=== PATIENT | female | born 1965 | race Caucasian/White ===

== ENCOUNTER → 2017-11-08 | Outpatient (CLI) | payer MEDICAID, SELFPAY | PROVIDERS: Family Provider Internal Medicine Adolescent Medicine; PCP Internal Medicine Adolescent Medicine; Visit Provider Internal Medicine Adolescent Medicine | DX: R09.89 Other specified symptoms and signs involving the circulatory and respiratory systems (principal); I73.9 Peripheral vascular disease, unspecified | CPT/HCPCS: 93923 ==

== ENCOUNTER → 2017-12-28 11:21 | Outpatient (CLI) | payer MEDICAID, SELFPAY ==
[2017-12-28 13:07] LABS: Alanine Aminotransferase 29 U/L (12-78); Albumin Level 3.5 gm/dL (3.4-5.0); Albumin/Globulin Ratio 1.1 (1.1-1.8); Alkaline Phosphatase 78 U/L (46-116); Anion Gap 13.9 mEq/L (5-15); Aspartate Amino Transferase 18 U/L (15-37); Bilirubin,Total 0.3 mg/dL (0.2-1.0); Blood Urea Nitrogen 22 mg/dL (7-18); Carbon Dioxide 28 mmol/L (21.0-32.0); Chloride 110 mmol/L (98-107); Chol/HDL Ratio 4.5 (1-3.5); Cholesterol 170 mg/dL (140-200); Creatinine,Serum 1.08 mg/dL (0.55-1.02); Estimated Glomerular Filt Rate 53 ml/min (>60); GFR (African American) 64 ML/MIN (>60); Globulin 3.2 gm/dl (1.3-3.2); Glucose 126 mg/dL (74-106); HDL Cholesterol 38 mg/dL (29-89); LDL Cholesterol 104 mg/dL (0-130); Magnesium 1.8 mg/dL (1.4-2.2); Potassium 4.9 mmoL/L (3.5-5.1); Sodium 147 mmol/L (136-145); Total Protein,Serum 6.7 gm/dL (6.4-8.2); Triglycerides 140 mg/dL (30-200); VLDL Cholesterol 28 mg/dL (0-40)
== END ==
PROVIDERS: PCP Internal Medicine Adolescent Medicine; Visit Provider Nurse Practitioner Family
DX: E83.42 Hypomagnesemia (principal); E78.1 Pure hyperglyceridemia; I10 Essential (primary) hypertension; N28.9 Disorder of kidney and ureter, unspecified; Z00.00 Encounter for general adult medical examination without abnormal findings
CPT/HCPCS: 36415; 80053; 80061; 83735

== ENCOUNTER → 2018-06-05 16:59 | Outpatient (CLI) | payer MEDICAID, SELFPAY ==
--- NOTE | 2018-06-05 | MM_ITS ---
MM Dig screening mamm BI w/CAD CAD Screening COMPARISON: Digital mammograms with CAD 12/16/2016 and 11/04/2015 INDICATION: There is a history of breast cancer patient's sister diagnosed after menopause. TECHNIQUE: Standard CC and MLO images were obtained. R2 CAD reviewed. FINDINGS: Prominent diffuse heterogenic fibroglandular densities are seen throughout both breast primarily upper outer quadrants. There are stable tiny nodular densities in each breast. A few benign-appearing calcifications in the left breast. There is no suspicious lesion and there are no suspicious microcalcifications. There is mild motion artifact on the MLO view right breast and the patient return for repeat right MLO view. IMPRESSION: Diffusely dense and heterogenic parenchyma pattern, motion artifact right breast. Request repeat MLO view right breast BI-RADS Category: 0 Need Additional Imaging Evaluation RECOMMENDED FOLLOW-UP: IMM - IMMEDIATE FOLLOW-UP RECOMMENDED (A letter has been sent to the patient regarding results of the study.)
== END ==
PROVIDERS: Family Provider Internal Medicine Adolescent Medicine; PCP Internal Medicine Adolescent Medicine; Visit Provider Nurse Practitioner Family
DX: Z12.31 Encounter for screening mammogram for malignant neoplasm of breast (principal)
CPT/HCPCS: 77067

== ENCOUNTER → 2018-06-28 15:13 | Outpatient (CLI) | payer MEDICAID, SELFPAY | PROVIDERS: Family Provider Internal Medicine Adolescent Medicine; PCP Internal Medicine Adolescent Medicine; Visit Provider Internal Medicine Adolescent Medicine | DX: R92.8 Other abnormal and inconclusive findings on diagnostic imaging of breast (principal) ==

== ENCOUNTER → 2019-06-04 16:36 | Outpatient (CLI) | payer MEDICAID, SELFPAY ==
[2019-06-04 17:08] LABS: Basophils % 0.2 % (0.1-2.0); Eosinophils % 0.1 % (0.1-12.0); Hematocrit 40.5 % (37.0-47.0); Hemoglobin 13.6 g/dL (12.2-16.2); Lymphocytes # 2.4 K/mm3 (0.7-4.5); Lymphocytes % 23.7 % (10-50); Mean Corpuscular HGB Conc 33.7 g/dL (31.8-35.4); Mean Corpuscular Hemoglobin 30.5 pg (27.0-31.2); Mean Corpuscular Volume 90.5 fl (81-99); Mean Platelet Volume 7.2 fl (7.4-10.4); Monocytes # 0.8 K/mm3 (0.1-1.0); Monocytes % 7.5 % (1.7-9.3); Neutrophils # 6.8 K/mm3 (1.8-7.8); Neutrophils % 68.4 % (37.0-80.0); Platelet Count 262 K/mm3 (142-424); Red Blood Count 4.48 M/mm3 (4.20-5.40); Red Cell Distribution Width 14.9 % (11.5-17.5)
[2019-06-04 18:58] LABS: Hemoglobin A1C 5.4 % (0.0-7.0)
[2019-06-04 21:31] LABS: Alanine Aminotransferase 29 U/L (12-78); Albumin Level 3.9 gm/dL (3.4-5.0); Albumin/Globulin Ratio 1.1 (1.1-1.8); Alkaline Phosphatase 108 U/L (46-116); Anion Gap 12.9 mEq/L (5-15); Aspartate Amino Transferase 14 U/L (15-37); Bilirubin,Total 0.5 mg/dL (0.2-1.0); Blood Urea Nitrogen 16 mg/dL (7-18); Calcium 9.2 mg/dL (8.5-10.1); Carbon Dioxide 28 mmol/L (21.0-32.0); Chloride 105 mmol/L (98-107); Chol/HDL Ratio 5.1 (1-3.5); Cholesterol 175 mg/dL (140-200); Creatinine,Serum 1.08 mg/dL (0.55-1.02); Estimated Glomerular Filt Rate 53 ml/min (>60); GFR (African American) 64 ML/MIN (>60); Globulin 3.4 gm/dl (1.3-3.2); Glucose 80 mg/dL (74-106); HDL Cholesterol 34 mg/dL (29-89); LDL Cholesterol 100 mg/dL (0-130); Magnesium 1.8 mg/dL (1.4-2.2); Potassium 3.9 mmoL/L (3.5-5.1); Sodium 142 mmol/L (136-145); Total Protein,Serum 7.3 gm/dL (6.4-8.2); Triglycerides 203 mg/dL (30-200); VLDL Cholesterol 41 mg/dL (0-40)
== END ==
PROVIDERS: Visit Provider Internal Medicine Adolescent Medicine
DX: R73.9 Hyperglycemia, unspecified (principal); E83.42 Hypomagnesemia
CPT/HCPCS: 36415; 80053; 80061; 83036; 83735; 85025

== ENCOUNTER → 2019-06-18 15:47 | Outpatient (CLI) | payer MEDICAID, SELFPAY ==
--- NOTE | 2019-06-18 16:09 | XR_ITS ---
XR knee LT 4V HISTORY: Pain ITS.REASON: 4 views weightbearing ORDERING PHYSICIAN: Srinath Enriquez MD PATIENT AGE: 53 years FINDINGS: Severe osteoarthritic changes are present involving the medial compartment and patellofemoral joint with [id number] osteoarthritis of the lateral compartment. There is loss of joint space medially with osteophyte formation. No fracture or dislocation. No lytic or blastic change. The osteoarthritis is somewhat worse compared to 06/17/2014. IMPRESSION: Worsening osteoarthritis
--- NOTE | 2019-06-18 16:09 | XR_ITS ---
XR knee RT 4V HISTORY: ITS.REASON: right knee pain ORDERING PHYSICIAN: Srinath Enriquez MD PATIENT AGE: 53 years COMPARISON: None FINDINGS: Severe osteoarthritic changes are present involving the right knee in all 3 compartments with loss of joint space especially along the medial compartment, osteophyte formation, and osteosclerosis. No fracture or dislocation. No lytic or blastic change. Mild subarticular cystic changes are noted at the medial compartment IMPRESSION: Severe osteoarthritis of the right knee slightly worse when compared to 06/17/2014
== END ==
PROVIDERS: PCP Internal Medicine Adolescent Medicine; Visit Provider Internal Medicine Adolescent Medicine
DX: M25.562 Pain in left knee (principal); M25.561 Pain in right knee
CPT/HCPCS: 73564

== ENCOUNTER → 2019-06-19 15:17 | Outpatient (CLI) | payer MEDICAID, SELFPAY ==
--- NOTE | 2019-06-19 15:22 | XR_ITS ---
XR hip LT 2-3V w/pelvis HISTORY: ITS.REASON: left hip pain ORDERING PHYSICIAN: Hans Candelaria MD PATIENT AGE: 53 years COMPARISON: None FINDINGS: Severe osteoarthritic changes are present involving the left hip with loss of joint space, osteosclerosis, and osteophyte formation. No obvious fracture, dislocation, lytic change or blastic change. IMPRESSION: Severe osteoarthritis of the left hip
--- NOTE | 2019-06-19 15:22 | XR_ITS ---
XR hip RT 2-3V w/pelvis HISTORY: ITS.REASON: right hip pain ORDERING PHYSICIAN: Hans Candelaria MD PATIENT AGE: 53 years COMPARISON: None FINDINGS: There are mild osteoarthritic changes of the right hip. No fracture, dislocation, lytic, or blastic change. IMPRESSION: Mild osteoarthritis of the right hip
== END ==
PROVIDERS: PCP Internal Medicine Adolescent Medicine; Visit Provider Orthopaedic Surgery
DX: M25.551 Pain in right hip (principal); M25.552 Pain in left hip
CPT/HCPCS: 73502

== ENCOUNTER → 2019-07-13 10:09 | Outpatient (CLI) | payer MEDICAID, SELFPAY ==
--- NOTE | 2019-07-13 | CA_ITS ---
APPROVED REPORT Exam: Pharmacologic Technologist: sunshine carroll, Ht: 5 ft 5 in Wt: 290 lbs BSA: 2.32 m2 HR: 82 bpm BP: 122/66 mmHg Rhythm: NSR Indications: CP<SOB<Fatigue Medical History Medications: Lisinopril,,,,, Gabapentin,,,,, Diazepam,,,,, Carvedilol,,,,, OxYCODONE,,,,, Venlafaxine,,,,, Tolterodine,,,,, Amiloride,,,,, Cyclobenzap,,,,, Allergies: ATIVAN Cardiac Risk Factors: HTN, Smoking Stress Test Details Test: LEXISCAN HR Resting HR: 78 bpm Max Heart Rate (APMHR): 164 bpm Max HR Achieved: 93 bpm Target HR (85% APMHR): 139 bpm % of APMHR: 56 Recovery HR: 87 bpm BP Resting BP: 122/66 mmHg Max BP: 136/77.0 mmHg Recovery BP: 120.0/68.0 mmHg ECG Clinical Reason for Termination: Completed protocol Stress Symptoms: NO Exercise duration: 04:00 min Highest Stage Achieved: Stress ECG Conclusion NO CHEST PAIN; NO SHORTNESS OF BREATH - COMPLAINED OF FLUSHING AT PEAK INFUSION. PATIENT HAD AN EPISODE OF BRADYCARDIA FOR 6 SECONDS - HR- 44 - NO ECTOPY NOTED. LESS THAN 1.5MM ST DEPRESSION. IMAGES TO FOLLOW. Test Summary REST 06:23 . . 78 . 122/ 66 . . Stage 1 01:00 . . 89 . . . . Stage 2 01:00 . . 90 . 130/ 66 . . Stage 3 01:00 . . 91 . 118/ 65 . . Stage 4 01:00 . . 88 . 124/ 67 . Stop exercise at 04:00 RECOVERY 01:00 . . 87 . . . . RECOVERY 02:00 . . 85 . 136/ 77 . . RECOVERY 03:00 . . 85 . 113/ 63 . . RECOVERY 04:00 . . 85 . 113/ 63 . . RECOVERY 04:18 . . 85 . 120/ 68 . . Electronically signed by : Costa Ryan, 07/17/2019 09:02:20
--- NOTE | 2019-07-13 10:54 | NM_ITS ---
APPROVED REPORT Exam: Nuclear Stress Test Indication: Chest pain, SOB, Fatigue, Obesity, HTN, Tobacco use Patient Location: Outpatient Stress Tech: Lavinia LooCheikh [place] Tech:Anusha Leonard PARSIH RT(R)(N) Ht: 5 ft 5 in Wt: 290 lbs BSA: 2.32 m2 HR: 82 bpm BP: 122/66 mmHg BMI: 48.2 History: Chest pain, SOB, Fatigue, Obesity, HTN, Tobacco use Procedure: Patient received a 0.4 mg of intravenous Lexiscan, resting heart rate 82 bpm, resting blood pressure 122/66 mmHg, with Lexiscan maximum heart rate achived was 91 bpm which is Less than 85 % of the maximum predicted heart rate and blood pressure was 136/77 mmHg. With Lexiscan, patient denied any complaint of chest pain. Electrocardiogram Resting electric cardiogram showed sinus rhythm, with Lexiscan there is less than 1.[address] segment depression noted from the baseline EKG. The EKG portion of the Lexiscan Myoview is nondiagnostic. Cardiac Stress and Resting SPECT Images: Cardiac Stress and Resting SPECT images were obtained using technetium 99m Myoview 31 mCi stress and 10 mCi at rest. Gated SPECT with analysis of segmental wall motion and calculation of the ejection fraction also done. Cardiac stress and resting SPECT images show mild fixed defect in the anterior wall with normal contractility gated SPECT is likely secondary to soft tissue attenuation, no reversible ischemia seen. Computer derived ejection fraction is over 65% with no regional wall motion abnormality, right ventricle is normal size and contractility. Conclusion: 1. The EKG portion of the Lexiscan Myoview is nondiagnostic. 2. No scintigraphic evidence of reversible ischemia seen, computer derived ejection fraction is over 65% with no regional wall motion abnormality, right ventricle is normal size and contractility. 3. Normal Lexiscan Myoview study. Electronically signed by : Ramón Alcantara, 07/19/2019 16:22:06
--- NOTE | 2019-07-13 13:28 | HMH.ITSHM ---
Current Home Medications as stated by this patient Betty Briseno or human resources representative. []gabapentin ibuprofen venlafazine tolterodine lisinopril amiloride carvedilol cyclobenzap diazepam ranitidine oxycodone
== END ==
PROVIDERS: PCP Internal Medicine Adolescent Medicine; Visit Provider Nurse Practitioner Family
DX: Z01.818 Encounter for other preprocedural examination (principal); R07.89 Other chest pain; R94.31 Abnormal electrocardiogram [ECG] [EKG]; R06.09 Other forms of dyspnea; I10 Essential (primary) hypertension; F41.9 Anxiety disorder, unspecified; F10.21 Alcohol dependence, in remission; F17.200 Nicotine dependence, unspecified, uncomplicated
CPT/HCPCS: 78452; 93017; 93306; A9502; J2785

== ENCOUNTER → 2019-12-05 14:16 | Outpatient (CLI) | payer OTHER, SELFPAY ==
--- NOTE | 2019-12-05 14:42 | ECG_ITS ---
APPROVED REPORT Exam: Resting ECG HR:78 bpm ECG Measurements Heart Rate 78 AXES NJ 154 P 7 QRSd 82 QRS 48 QT 366 T 20 QTc 417 <Conclusion> Normal sinus rhythm Low voltage QRS Abnormal ECG Electronically signed by : Eliel Casillas, 12/05/2019 14:50:38
--- NOTE | 2019-12-05 14:45 | XR_ITS ---
PROCEDURE: XR CHEST 2V CLINICAL HISTORY: CURRENT TOBACCO USE, HTN, PREOP COMPARISON: CXR CHEST(2 VIEWS-NOT PORTABLE) from 01/09/2014 CXR CHEST(2 VIEWS-NOT PORTABLE) from 04/21/2017 FINDINGS: The cardiomediastinal silhouette and pulmonary vascularity are within normal limits. The lungs are clear without infiltrates, suspicious nodules, or pleural effusions. No acute bony abnormalities. IMPRESSION: No acute findings. Dictated by: Mau Lovett 12/06/2019 09:04 Electronically signed by Mau Lovett in [place] 12/06/2019 09:04
[2019-12-05 14:50] LABS: Basophils % 0.3 % (0.1-2.0); Eosinophils # 0.1 K/mm3 (0.0-0.4); Eosinophils % 0.6 % (0.1-12.0); Hematocrit 47.2 % (37.0-47.0); Hemoglobin 15.4 g/dL (12.2-16.2); Lymphocytes # 2.6 K/mm3 (0.7-4.5); Mean Corpuscular HGB Conc 32.6 g/dL (31.8-35.4); Mean Corpuscular Hemoglobin 30.9 pg (27.0-31.2); Mean Corpuscular Volume 94.7 fl (81-99); Monocytes # 0.6 K/mm3 (0.1-1.0); Monocytes % 5.6 % (1.7-9.3); Neutrophils % 68.5 % (37.0-80.0); Platelet Count 293 K/mm3 (142-424); Red Blood Count 4.98 M/mm3 (4.20-5.40); Red Cell Distribution Width 14.2 % (11.5-17.5); White Blood Count 10.3 K/mm3 (4.8-10.8)
[2019-12-05 15:39] LABS: Aspartate Amino Transferase 4 U/L (15-37)
[2019-12-05 15:59] LABS: Alanine Aminotransferase 18 U/L (12-78); Albumin Level 3.7 gm/dL (3.4-5.0); Albumin/Globulin Ratio 1.1 (1.1-1.8); Alkaline Phosphatase 103 U/L (46-116); Anion Gap 11.7 mEq/L (5-15); Bilirubin,Total 0.4 mg/dL (0.2-1.0); Blood Urea Nitrogen 21 mg/dL (7-18); Calcium 9.2 mg/dL (8.5-10.1); Carbon Dioxide 33 mmol/L (21.0-32.0); Chloride 105 mmol/L (98-107); Creatinine,Serum 0.96 mg/dL (0.55-1.02); Estimated Glomerular Filt Rate 60 ml/min (>60); GFR (African American) 73 ML/MIN (>60); Globulin 3.4 gm/dl (1.3-3.2); Glucose 75 mg/dL (74-106); Potassium 4.7 mmoL/L (3.5-5.1); Sodium 145 mmol/L (136-145); Total Protein,Serum 7.1 gm/dL (6.4-8.2)
== END ==
PROVIDERS: Visit Provider Orthopaedic Surgery
DX: Z01.818 Encounter for other preprocedural examination (principal); M16.12 Unilateral primary osteoarthritis, left hip
CPT/HCPCS: 36415; 71046; 80053; 85025; 93005

== ENCOUNTER → 2019-12-08 13:21 | Outpatient (CLI) | payer OTHER, SELFPAY ==
[2019-12-08 13:39] LABS: Microscopic, Urine URINE MICROSCOPIC (MICROSCOPIC)
[2019-12-08 14:17] LABS: Appearance,Urine CLEAR (Clear); Bilirubin,Urine Negative (Negative); Blood, Urine 2+ (Negative); Color,Urine YELLOW (Yellow); Glucose,Urine (UA) Negative (Negative); Ketones,Urine Negative (Negative); Leukocyte Esterase,Urine 1+ (Negative); Nitrate,Urine Negative (Negative); PH,Urine 6.5 (5.0-8.5); Protein,Urine Negative (Negative); Specific Gravity, Urine 1.015 (1.005-1.030); Urobilinogen,Urine 0.2 EU/dl (0.2)
== END ==
PROVIDERS: PCP Internal Medicine Adolescent Medicine; Visit Provider Orthopaedic Surgery
DX: Z01.818 Encounter for other preprocedural examination (principal); M16.12 Unilateral primary osteoarthritis, left hip
CPT/HCPCS: 81001; 86850; 87086

== ENCOUNTER → 2019-12-14 15:28 | Outpatient (CLI) | payer OTHER, SELFPAY ==
[2019-12-14 15:34] LABS: Microscopic, Urine URINE MICROSCOPIC (MICROSCOPIC)
[2019-12-14 16:20] LABS: Appearance,Urine CLOUDY (Clear); Bilirubin,Urine Negative (Negative); Blood, Urine Negative (Negative); Color,Urine YELLOW (Yellow); Glucose,Urine (UA) Negative (Negative); Ketones,Urine Negative (Negative); Leukocyte Esterase,Urine Negative (Negative); Nitrate,Urine Negative (Negative); PH,Urine 7.5 (5.0-8.5); Protein,Urine Negative (Negative); Urobilinogen,Urine 0.2 EU/dl (0.2)
[2019-12-14 16:45] LABS: Bacteria,Urine Trace /lpf; Squamous Epithelial Cell,Urine Occasional #/hpf (0-5); Trichomonas,Urine Occasional /lpf; WBC,Urine Occasional #/hpf (0-3)
== END ==
PROVIDERS: Visit Provider Orthopaedic Surgery
DX: Z01.818 Encounter for other preprocedural examination (principal)
CPT/HCPCS: 81001

== ENCOUNTER 2019-12-17 09:29 | Inpatient (IN) ==
--- NOTE | 2019-12-10 09:05 | Progress Note ---
[facility] Anesthesia Checklist - Patient Identification Patient Identification: Arm Band - Structural Data Admitted From: Home Planned Operative Procedure/s: left total hip arthroplasty Consent for Planned Operative Procedure(s) Verified: Yes Verified Documents: Surgical Consent, History and Physical, Cardiac Clearance - NPO Status Verified Time NPO: 00:00 - Additional verifications Anesthesia Reactions: No Hx Blood Transfusions: No Blood Transfusion Reaction: No - Airway Assessment C-Spine Mobility Assessed: Yes (mp2) TMJ Mobility Assessed: Yes Dentition: Good Dentition - Neurological Assessment Level of Consciousness: Awake, Alert - Anesthesia Plan Anesthesia Risk discussed: Yes Anesthesia Plan: Verified ASA Class: III Anesthesia Type: MAC w/Spinal (risks/benefits of spinal discussed. Pt verbalizes understanding) [facility] History I have reviewed the patient's past medical history: Yes Medical History: Reports:: Anxiety, Cancer (ovarian), Depression, Gastroesophageal Reflux Disease(GERD), Hypertension, Migraine Denies:: Diabetes Mellitus Type 1, Diabetes Mellitus Type 2, Internal Pacemaker, MRSA, Seizures *Have you ever received a pneumonia vaccine?: No *Have you received a flu vaccine this season?: No Other Medical History: Reports: Arthritis. Denies: Blood Transfusion Reaction Anesthesia experience/problems:: nac Laterality Cases: Right: Arthroscopy Knee Other Surgeries: Yes: Colonoscopy, Hysterectomy-Total. No: Pacemaker Amputation: No Fractures: No - *Social History Educational Level: Attended High School Smoking Status: Current every day smoker Tobacco Type: cigarettes # Packs/Day (cigarettes): 1 Alcohol Intake: never Substance Use Type: denies use *Occupational Status:: unemployed, disabled Housing: house *Travel in the last 8 weeks: None - Psychiatric History Pschychiatric History:: Reports:: Anxiety, Depression Family Hx:: Coronary Artery Disease
--- NOTE | 2019-12-17 15:39 | Progress Note ---
[facility] Anesthesia Checklist - Patient Identification Patient Identification: Arm Band, Verbal (Name & ) - Structural Data Admitted From: Home Planned Operative Procedure/s: Left lateral JEANMARIE Consent for Planned Operative Procedure(s) Verified: Yes Verified Documents: Surgical Consent, History and Physical, Cardiac Clearance - NPO Status Verified Time NPO: 00:00 - Chart Verification Results Verified: CBC, BMP - Additional verifications Anesthesia Reactions: No Hx Blood Transfusions: No Blood Transfusion Reaction: No - Airway Assessment C-Spine Mobility Assessed: Yes TMJ Mobility Assessed: Yes Dentition: Poor Dentition - Neurological Assessment Level of Consciousness: Awake, Alert, Appropriate, Follows Commands Hx Seizures: No Numbness or tingling in extremities: No - Anesthesia Plan Anesthesia Risk discussed: Yes Anesthesia Plan: Verified ASA Class: III Anesthesia Type: Spinal [facility] History I have reviewed the patient's past medical history: Yes Medical History: Reports:: Anxiety, Cancer (ovarian), Depression, Gastroesophageal Reflux Disease(GERD), Hypertension, Migraine Denies:: Diabetes Mellitus Type 1, Diabetes Mellitus Type 2, Internal Pacemaker, MRSA, Seizures *Have you ever received a pneumonia vaccine?: No *Have you received a flu vaccine this season?: No Other Medical History: Reports: Arthritis. Denies: Blood Transfusion Reaction Comment:: morbid obesity Anesthesia experience/problems:: nac Laterality Cases: Right: Arthroscopy Knee, Bilateral: Carpal Tunnel Release Other Surgeries: Yes: Colonoscopy, Hysterectomy-Total. No: Pacemaker Amputation: No Fractures: No - *Social History Educational Level: Completed High School Smoking Status: Current every day smoker Tobacco Type: cigarettes # Packs/Day (cigarettes): 1 Alcohol Intake: never Substance Use Type: marijuana Last Used Substance: days (ago) *Occupational Status:: unemployed Housing: house Household Members: none *Travel in the last 8 weeks: None - Psychiatric History Pschychiatric History:: Reports:: Anxiety, Depression Family Hx:: Coronary Artery Disease
--- NOTE | 2019-12-17 19:49 | Progress Note ---
[facility] Anesthesia Record Part I Intake, IV Amount: 2,700 Estimated blood loss (mL): 1,000 Urine output (mL): 500 Blood Products used (#): none Blood Pressure: 101/61 SaO2: 94 Pulse Rate: 90 Respiratory Rate: 14 Temperature: 98.3 F Patient is:: Awake, Drowsy, Nasal O2, Stable Stable to PACU at:: 19:41
--- NOTE | 2019-12-17 19:55 | Operative Note ---
Date of procedure: 12/17/19 Pre-op Diagnosis:: Advanced degenerative arthritis, left hip Post-op Diagnosis:: Same Procedure performed:: Uncemented total hip arthroplasty, left hip Surgeon:: Hans Candelaria MD Sleep Scientist(s):: Anusha Styles GROOMING SALON MANAGER:: Shubham Mckeon Anesthesia: spinal Estimated blood loss (mL): 1,000 Clinical Note:: Patient is a 54-year-old female with end-stage osteoarthritis of her LEFT hip unresponsive to conservative management. The arthritis is causing severe pain and significant disability and has not responded well to conservative management. Her mobility, ability to work, and quality of life is severely impacted. The pain is also affecting her lifestyle, activities of daily living and significantly impacting her sleep. Also she is at a high risk of falls from the arthritis. Therefore a total hip arthroplasty is indicated to relieve pain and to reduce the disability and risk of falls. Please refer to my office note for full details. Operative findings:: Preoperative examination and x-ray findings were consistent with the above diagnosis. Intraoperatively, end-stage osteoarthritis of the hip joint is noted. The femoral head was grossly arthritic and misshapen and osteophytes were noted on both the acetabular and the femoral side. The capsule/soft tissues are cont racted and very tight. The capsule was thickened and range of motion was markedly decreased. The joint capsule and surrounding soft tissue were thickened and very inflamed and more than usual amount of bleeding noted during surgery. The bone quality was good. Overall it was a very difficult procedure given the patient's size, degree of arthritis and stiffness of the hip joint. Operative note:: On the day of the procedure the patien was met in the preoperative area and the patient was positively identified. A physical examination was performed and documented. The operative site was appropriately marked and initialed by me. I again reviewed the diagnosis, natural history and management options in detail including both nonsurgical and surgical. We discussed the proposed surgery, risks and benefits and alternatives in detail. The complications discussed include but are not limited to infection, bleeding, injury to nerves, blood vessels and tendons, DVT and PE, fracture, limb length inequality, dislocation, implant malpositioning, implant failure, squeaking, loosening, acetabular wear, osteolysis, periprosthetic femur fracture, heterotopic ossification, abductor weakness and limp, incomplete relief of pain, incomplete recovery of function, chronic pain, likely need for further surgery in future including revision, anesthetic complications including heart attack, stroke and even . We also discussed the postoperative recovery and rehabilitation. Patient verbalized a good understanding and wished to proceed with the proposed surgery. Patient understood the risks, agreed to proceed with surgery, signed the consent form and no guarantees or assurances were given or implied. The patient was brought to the operating room and a spinal anesthesia was administered by the historical site guide. The patient was then positioned in the RIGHT lateral decubitus position with the LEFT hip facing up. We used Lifestreamson hip positioner for this. All the bony prominences were appropriately padded. The LEFT hip was then prepped with isopropyl alcohol followed by chlorhexidine and draped in the usual sterile fashion. The entire operative team wore isolation suits and the Operating Room traffic was controlled. The skin incision was marked for a posterior approach to the hip joint. The perineum and the operative site were sealed off with Ioban drape. A preprocedure timeout was performed as per hospital protocol identifying the patient, correct surgery and correct site. Administration of prophylactic IV antibiotics (Ancef and vancomycin) was confirmed with the historical site guide. During the procedure 1 more gram of IV Ancef was administered as the operating time was over 2 hours. We have also administered IV tranexamic acid just before starting the surgery and another dose at the end of the procedure, to reduce the khushi-operative bleeding. A posterior approach was used to the LEFT hip joint. The skin incision was made centering over the posterior part of the greater trochanter extending posteriorly in a curved fashion across the buttock. An electrocautery was used for hemostasis. The dissection was carried through the subcutaneous tissue down to the fascia yaron. The fascia yaron and gluteus fascia were split in line with the skin incision and a Charnley retractor was placed. The trochanteric bursa was then removed with blunt dissection. The sciatic nerve was identified and kept out of harm's way throughout the rest of the procedure. The hip joint was internally rotated and the fat over the short external rotators was cleared with a sponge. The short external rotator muscles were identified, a tag stitch was placed near their insertion and they were divided close to the trochanter with electrocautery. This exposed the joint capsule which was opened in a T-shaped incision after tag stitches were placed to both the leaves of the capsule. There were large osteophytes around the femoral head and the capsule was very thickened and inflamed. The hip joint was then dislocated with some difficulty. The femoral cutting guide was used to demarcate the appropriate level of the neck cut and the neck was osteotomized with an oscillating saw. The femoral head was removed, noted to be very deformed and arthritic and saved on the back table for later use if needed. We then placed anterior and posterior Cobra retractors and proceeded to prepare the acetabulum. The soft tissue contents of the acetabulum including the ligamentum teres and the labrum were removed. We then proceeded to reaming the acetabulum. We started off with a size 50 reamer and then proceeded with reaming up to size 56 for a size 56 acetabular shell. We used a size 56 cup trial which could be seated firmly and was noted to be stable. We then removed the trial shell and placed a size 56 definitive acetabular cluster hole shell at approximately 45 degrees inclination and 20 degrees of anteversion. The press-fit fixation was quite solid. Therefore no additional fixation with the screws was required. We then placed the metal liner into the shell and impacted into place. We then placed a Ray-Sea gauze in the acetabulum and proceeded to prepare the proximal femur. After removing the soft tissue from the medial aspect of the greater trochanter, a box osteotome was used to remove the bone from the proximal femur. A canal entry reamer was then used to open the femoral canal paying close attention to keep the reamer in a lateral position. Next we used the lateralizing drill. Next we performed femoral broaching starting with a small broach, making sure to lateralize the placement and maintain 15-20 degrees of femoral anteversion. The broaching was continued sequentially up to size 6 broach. We found this to be a very good fit without any rocking. We then finished the preparation of the proximal femur with a calcar reamer. We then attempted a trial reduction using a size 6 broach, 132 angle neck and 0 mm head. However, we noticed the hip joint to be not stable with these trial implants. Therefore we have changed the trial implants to 127 angle neck and placed for mm head and could easily reduce the hip joint. At first, we noticed impingement of the femoral neck over the anterior acetabular osteophytes. We then proceeded to remove these osteophytes with an osteotome and rongeur. Following this we again reduced the hip joint and taken through range of motion and tested in adduction, internal and external rotation as well as with a shuck and posteriorly directed force on a flexed hip. We placed the hip at 90 degrees of flexion and then we could internally rotate to 60 degrees with no evidence of instability. Also in the sleep position of approximately 20 degrees of adduction and internal rotation of 60 degrees the hip was still stable. We also noted that the limb lengths were equal with these components. As the hip was noted to be very stable with these trial components throughout the range of motion, we decided on this as our final construct. Next the trial components were removed and the femoral canal was irrigated with the pulse lavage and suctioned out. The definitive femoral stem was then placed and seated to the appropriate level. This gave us a very good fit without any play whatsoever. We then irrigated and dried the Mckeon taper and then placed the definitive MDM femoral head assembly on the stem and tapped into place. The Ray-Sea gauze was removed from the acetabulum and hip joint irrigated with the pulse lavage. The hip was then reduced and taken through range of motion and noted to be very stable. The limb length was also well corrected. The hip joint was then soaked with dilute Betadine (0.35 percent) solution for 3 minutes followed by suctioning of the solution and pulsatile lavage with the 1 L of normal saline. Good hemostasis was confirmed before proceeding with wound closure. I also placed 2 g of vancomycin powder in the wound before proceeding with closure. The capsule was closed with #1 Vicryl sutures followed by the reattachment of the external rotators to the greater trochanter with #1 Vicryl sutures. Next the fascia yaron and gluteus fascia were closed with few interrupted #1 Vicryl sutures and with #1 Stratafix PDS running sutures. The wound was then finally irrigated with pulse lavage and suctioned dry. A single suction drain was placed in the subcutaneous tissue superficial to the fascia yaron to reduce space/hematomas collection. Next the subcutaneous tissue was closed with 2-0 Stratafix PDS running sutures. The skin was closed with subcuticular 3-0 Monocryl Stratafix sutures and Dermabond Prineo Skin Closure System. Sterile dressings were applied consisting of 4 x 4 and ABDs secured in place with adhesive tape. The surgery was very difficult given the patient's large size/morbid obesity, very stiff and grossly arthritic hip joint. Also there was more than usual amount of bleeding from the inflamed joint capsule and pericapsular tissue. The patient was then transferred from the operating table onto the bed. The leg lengths were again checked in supine position and noted to be equal. An abduction foam was placed between the legs. The patient was then transported to the postoperative recovery area in a stable condition. Patient tolerated the procedure well and there were no immediate complications. The swab, needle and instrument counts were correct according to the scrub team at the end of the procedure. Portable x-rays of the pelvis AP view and lateral view of the operated hip were obtained in the recovery area which showed satisfactory placement of the components and no evident complications. Postoperatively, we would institute and continue standard precautions for a posterior hip approach. Patient can be mobilized weightbearing as tolerated with the help of physical therapy and commence standard physical therapy for a posterior approach total hip arthroplasty on the first postoperative day. Implants: The following [employer] implants were used- Luis Accolade 2 press-fit femoral stem, 127 degree neck angle, size 6 Press-fit Trident Tritanium cluster hole shell, 56 mm, F 46 mm inner diameter MDM cementless liner Buddhism MDM X3 insert 28/52, size 46F Biolox delta ceramic head V 40 femoral head, size 28 mm x +4 mm neck length Industry human resources hr representative: Timoteo Dent from [employer]. Condition: stable Disposition: PACU Specimens:: None Complications:: None
[2019-12-17 20:12] LABS: Hematocrit 38.7 % (37.0-47.0); Hemoglobin 13.2 g/dL (12.2-16.2)
[2019-12-18 06:56] LABS: Eosinophils % 0.1 % (0.1-12.0); Lymphocytes # 2.1 K/mm3 (0.7-4.5); Mean Corpuscular HGB Conc 32.2 g/dL (31.8-35.4); Red Cell Distribution Width 14.7 % (11.5-17.5)
[2019-12-18 06:58] LABS: Anion Gap 10.8 mEq/L (5-15); Calcium 8.2 mg/dL (8.5-10.1)
[2019-12-18 07:02] LABS: Basophils % 0.2 % (0.1-2.0); Hematocrit 35.5 % (37.0-47.0); Lymphocytes % 11.5 % (10-50); Mean Corpuscular Volume 97.2 fl (81-99); Mean Platelet Volume 7.7 fl (7.4-10.4); Monocytes # 1.1 K/mm3 (0.1-1.0); Neutrophils # 15.1 K/mm3 (1.8-7.8); Neutrophils % 82.3 % (37.0-80.0); Platelet Count 281 K/mm3 (142-424); Red Blood Count 3.65 M/mm3 (4.20-5.40); White Blood Count 18.4 K/mm3 (4.8-10.8)
[2019-12-18 07:03] LABS: Hemoglobin 11.4 g/dL (12.2-16.2)
--- NOTE | 2019-12-18 07:18 | Pharmacy Consult Notes ---
[facility] Pharmacy VTE Monitoring - Patient Demographics Admission date: 12/17/19 Report Date: 12/18/19 Time: 07:18 Allergies/Adverse Reactions: Patient Allergies lorazepam [From Ativan] Adverse Reaction (Severe, Verified 12/17/19 11:43) FACIAL TWITCHING, NEURO CHANGES Height: 1.68 m Weight: 141.748 kg - VTE Risk Labs: VTE Related Lab Results Hgb 11.4 g/dL (12.2-16.2) L D 12/18/19 06:12 Hct 35.5 % (37.0-47.0) L 12/18/19 06:12 Plt Count 281 K/mm3 (142-424) 12/18/19 06:12 BUN 21 mg/dL (7-18) H 12/18/19 06:12 Creatinine 2.04 mg/dL (0.55-1.02) H 12/18/19 06:12 Estimated Creat Clear 29 mL/min (50-200) 12/18/19 06:12 - Prophylaxis VTE Prophylaxis Ordered?: Yes Types of VTE Prophylaxis: IPCS Thigh High Location of Applied Device: Bilateral Lower Extremeties
--- NOTE | 2019-12-18 08:47 | History & Physical Report ---
*Admission Date: 12/17/19 *Chief complaint: Status post left hip arthroplasty *History of present illness: Ms. Briseno is a pleasant 54-year-old female with significant arthritis in her hips who presented yesterday for left total hip arthroplasty. She has multiple comorbidities consisting of hypertension, morbid obesity, depression, arthritis, tobacco dependence that complicate her care. Tolerated surgery well and was assessed this morning on exam. Medicine was consulted for comanagement of her comorbidities. This morning she complains of pain in her hip but denies any chest pain or shortness of breath. Ate some of her breakfast but states "my eyes were bigger than my stomach". Urine output decreased somewhat overnight necessitating IV fluid resuscitation. Blood pressure well controlled. Reviewed labs and op report this morning. [place] History I have reviewed the patient's past medical history: Yes Medical History: Reports:: Anxiety, Cancer (ovarian), Depression, Gastroesophageal Reflux Disease(GERD), Hypertension, Migraine Denies:: Diabetes Mellitus Type 1, Diabetes Mellitus Type 2, Internal Pacemaker, MRSA, Seizures *Have you ever received a pneumonia vaccine?: No *Have you received a flu vaccine this season?: No Other Medical History: Reports: Arthritis. Denies: Blood Transfusion Reaction Anesthesia experience/problems:: nac Laterality Cases: Right: Arthroscopy Knee, Bilateral: Carpal Tunnel Release Other Surgeries: Yes: Colonoscopy, Hysterectomy-Total. No: Pacemaker Amputation: No Fractures: No - *Social History Educational Level: Completed High School Smoking Status: Current every day smoker Tobacco Type: cigarettes # Packs/Day (cigarettes): 1 Alcohol Intake: never Substance Use Type: marijuana Last Used Substance: days (ago) *Occupational Status:: unemployed Housing: house Household Members: none *Travel in the last 8 weeks: None - Psychiatric History Pschychiatric History:: Reports:: Anxiety, Depression Family Hx:: Coronary Artery Disease Review of Systems - Review of Systems Review of systems:: pertinent systems reviewed and negative unless documented below (14pt ROS performed, pertinent positives and negatives per HPI) Meds Home Medications Medication Instructions Recorded Confirmed Type amiloride 5 mg tablet 5 mg PO DAILY 06/19/19 12/17/19 History cyclobenzaprine 10 mg tablet 10 mg PO HS 06/19/19 12/17/19 History diazepam 10 mg tablet 10 mg PO BID 06/19/19 12/17/19 History furosemide 20 mg tablet 20 mg PO DAILY 06/19/19 12/17/19 History gabapentin 800 mg tablet 800 mg PO TID 06/19/19 12/17/19 History lisinopril 20 mg tablet 20 mg PO DAILY 06/19/19 12/17/19 History ibuprofen 800 mg tablet 800 mg PO TID PRN 07/04/19 12/17/19 History venlafaxine 150 mg 150 mg PO DAILY cap 07/04/19 12/18/19 History capsule,extended release 24 hr carvedilol 12.5 mg tablet 12.5 mg PO BID 10/30/19 12/17/19 History Chlorhexidine Gluconate 1 applic TOPICAL ONCE 12/07/19 12/17/19 History Oxybutynin Chloride [Ditropan Xl] 10 mg PO BID 12/07/19 12/17/19 History Magnesium Oxide [Mag-Ox 400mg Tab] 400 mg PO BID 12/18/19 12/18/19 History Mupirocin [Bactroban 2% Ointment 1 applic TOPICAL BID 12/18/19 12/18/19 History 22gm tube] Venlafaxine HCl [Venlafaxine HCl 75 mg PO HS 12/18/19 12/18/19 History ER] Allergies Allergy/AdvReac Type Severity Reaction Status Date / Time lorazepam [From Ativan] AdvReac Severe FACIAL Verified 12/17/19 11:43 TWITCHING, NEURO CHANGES Exam Vital signs and Labs for Last 24 Hours: Temp Pulse Resp BP Pulse Ox 97.5 F L 80 12 94/64 L 96 12/17/19 20:50 12/18/19 00:00 12/17/19 21:00 12/17/19 21:00 12/18/19 00:00 Laboratory Results - last 24 hr 12/17/19 09:31: Blood Type O Positive, Antibody Screen Positive 12/17/19 14:00: Urine Color Yellow, Urine Appearance Clear, Urine pH 7.0, Ur Specific [place] 1.020, Urine Protein Negative, Urine Glucose (UA) Negative, Urine Ketones Negative, Urine Blood Negative, Urine Nitrate Negative, Urine Bilirubin Negative, Urine Urobilinogen 0.2, Ur Leukocyte Esterase Negative, Urine WBC Occasional, Ur Squamous Epith Cells Occasional, Urine Bacteria Trace 12/17/19 20:04: Hgb 13.2, Hct 38.7 12/17/19 20:52: POC Glucose 154 H 12/18/19 06:12: WBC 18.4 H, RBC 3.65 L, Hgb 11.4 L D, Hct 35.5 L, MCV 97.2, MCH 31.3 H, MCHC 32.2, RDW 14.7, Plt Count 281, MPV 7.7, Neut % (Auto) 82.3 H, Lymph % (Auto) 11.5, [place] % (Auto) 6.0, Eos % (Auto) 0.1, Baso % (Auto) 0.2, Neut # (Auto) 15.1 H, Lymph # (Auto) 2.1, [place] # (Auto) 1.1 H, Eos # (Auto) 0.0, Baso # (Auto) 0.0 12/18/19 06:12: Sodium 140, Potassium 4.8, Chloride 105, Carbon Dioxide 29, Anion Gap 10.8, BUN 21 H, Creatinine 2.04 H, Estimated Creat Clear 29, Estimated GFR 25 L, Est GFR ( Amer) 30 L, Glucose 127 H, Calcium 8.2 L I & O for Last 24 hours: Intake & Output 12/15/19 12/16/19 12/17/19 12/18/19 23:59 23:59 23:59 23:59 Intake Total 2700 / 3140 440 / 440 Output Total 500 / 650 150 / 150 Balance 2200 / 2490 290 / 290 Weight 141.748 kg - Constitutional no acute distress, morbidly obese - *Routine HEENT Exam Head: Present: normocephalic Eye: Present: EOMI, PERRL ENT: Present: mucous membranes moist - *Routine Neck Exam Present: supple. Absent: lymphadenopathy - *Routine Respiratory Exam Present: CTA bilaterally - *Routine Cardiovascular Exam Present: RRR - *Routine Abdominal Exam Present: soft, normoactive bowel sounds. Absent: tenderness Comments: Protuberant - *Routine Extremities Exam Present: edema (1+ to knees bilaterally). Absent: cyanosis, clubbing Comments: Left extremity with postsurgical bandaging over left hip, drain in place draining frankly bloody discharge. Neurovascularly intact in bilateral feet - *Routine Skin Exam Present: warm. Absent: rash - *Routine Neurological Exam Present: alert, oriented X3 Assessment and Plan (1) History of total left hip arthroplasty Current visit: Yes Status: Acute Category: Surgical Code(s): Z96.642 - Presence of left artificial hip joint Managed per orthopedics. Caution with opiates given patient's history of substance dependence. Will need physical therapy assessment and placement (2) Anxiety Current visit: No Status: Chronic Category: Medical Code(s): F41.9 - Anxiety disorder, unspecified continue home medications, stable at this time. (3) HTN (hypertension) Current visit: No Status: Chronic Qualifiers: Hypertension type: essential hypertension Qualified Code(s): I10 - Essential (primary) hypertension Category: Medical Code(s): I10 - Essential (primary) hypertension (4) Tobacco dependence syndrome Current visit: No Status: Chronic Category: Medical Code(s): F17.200 - Nicotine dependence, unspecified, uncomplicated - Assessment and plan all Dx Assessment and Plan for all problems:: 54-year-old female with multiple chronic comorbidities admitted for left total hip arthroplasty. Tolerated procedure well. Continue IV maintenance fluid while advance diet. Further dispel recommendations pending physical therapy assessment. Anticoagulation and pain control per orthopedics. Continue home regimen for hypertension and anxiety. Suspect patient will qualify for referral to rehabilitation/long-term facility at time of discharge. Further recommendations at this time. Thank you for the opportunity to consult on this patient. We will continue to follow along
[2019-12-18 09:50] LABS: Lymphocytes % 16 % (10-50); Monocytes % 7 % (2-9); Neutrophils % 77 % (42-76); RBC Morphology Normal; Total Cells Counted 100
--- NOTE | 2019-12-18 13:22 | Progress Note ---
Subjective Date: 12/18/19 Time: 12:45 Principal diagnosis: Status post total hip arthroplasty, left hip Interval history: Patient is status post LEFT total hip arthroplasty post op day #1 avascular necrosis. Patient is lying down on the bed and says she is doing well. Patient has moderate pain around the left hip and says it's well-controlled with medication. No history of any nausea or vomiting. No history of any cough, chest pain, shortness of breath or palpitations. Patient says she is eating and drinking well. No history of any distal tingling or numbness. PN: Obj Ex Vital signs: Temp Pulse Resp BP Pulse Ox 98.8 F 103 H 14 105/74 L 97 12/18/19 12:00 12/18/19 12:00 12/18/19 12:00 12/18/19 12:00 12/18/19 12:00 Narrative: Exam General appearance: alert, active, awake, no acute distress Cardiovascular: regular rate & rhythm, normal peripheral pulses Respiratory: No respiratory distress noted, speaks in full sentences ABD: soft and non tender Neuro: alert, awake, oriented x 3 Psych: Appropriate mood and affect for her situation Genitourinary: Catheter in situ. On examination of the lower extremities the limb lengths are equal. Thigh and calf are soft and nontender. On examination of the LEFT hip the dressings are clean, dry and intact. There is no soakage of the dressings. Distal pulses are 1+. Distal sensation is intact to light touch throughout. No motor deficits noted distally. - Urinary Catheter Management Fried Cath placed during this visit: no Progress Note: A&P (1) History of total left hip arthroplasty Status: Acute Current Visit: Yes Assessment and Plan for All Diagnoses:: I have reviewed the clinical and operative findings and procedure performed with the patient and her friends. I have also reviewed the postop labs. Patient is doing well and reports no problems. Patient has started mobilizing weightbearing as tolerated on the LEFT side with the walker and to continue the same. Continue DVT prophylaxis. Continue abduction pillow when in bed and continue standard precautions for the posterior approach hip replacement. Discontinue IV fluids and discontinue the urinary catheter. Case management consult regarding discharge planning. Continue medical management as per Dr. Enriquez.
--- NOTE | 2019-12-19 06:50 | Progress Note ---
[facility] Anesthesia Record Part II Discharge Time: 20:11 Destination: Medical Surgical Department PACU nurse assessment reviewed?: Yes Patient Condition:: Good Anesthesia Complications:: None Swallowing reflex intact?: Yes Cyanosis?: No Blood Pressure: 96/55 Pulse Rate: 84 Temperature: 97.5 F Mental Status: Alert & Oriented Pain level:: 0 Nausea and/or vomitting:: None Intake, IV Amount: 0
[2019-12-19 08:36] LABS: Basophils % 0.1 % (0.1-2.0); Eosinophils % 0.1 % (0.1-12.0); Hematocrit 27.6 % (37.0-47.0); Hemoglobin 9.3 g/dL (12.2-16.2); Lymphocytes # 2.1 K/mm3 (0.7-4.5); Lymphocytes % 18.9 % (10-50); Mean Corpuscular HGB Conc 33.8 g/dL (31.8-35.4); Mean Corpuscular Volume 92.4 fl (81-99); Mean Platelet Volume 8.5 fl (7.4-10.4); Monocytes # 0.7 K/mm3 (0.1-1.0); Monocytes % 6.5 % (1.7-9.3); Neutrophils # 8.3 K/mm3 (1.8-7.8); Neutrophils % 74.3 % (37.0-80.0); Platelet Count 179 K/mm3 (142-424); Red Blood Count 2.99 M/mm3 (4.20-5.40); Red Cell Distribution Width 14.6 % (11.5-17.5); White Blood Count 11.2 K/mm3 (4.8-10.8)
[2019-12-19 08:46] LABS: Anion Gap 8.7 mEq/L (5-15)
--- NOTE | 2019-12-19 09:02 | Progress Note ---
Internal Medicine - PN: Subj *Date: 12/19/19 *Time: 09:01 Interval history: Patient did well with surgery. Wants to "go somewhere where they will push me for rehab." Exam Vital signs and Labs for Last 24 Hours: Temp Pulse Resp BP Pulse Ox 97.5 F L 84 20 96/55 L 94 L 12/19/19 06:50 12/19/19 06:50 12/19/19 04:00 12/19/19 06:50 12/19/19 04:00 Laboratory Results - last 24 hr 12/17/19 09:31: Antibody Identification Warm Auto Antibody 12/18/19 06:12: Total Counted 100, Neutrophils % (Manual) 77 H, Lymphocytes % (Manual) 16, Monocytes % (Manual) 7, Platelet Estimate Normal, RBC Morphology Normal 12/19/19 08:23: WBC 11.2 H D, RBC 2.99 L, Hgb 9.3 L, Hct 27.6 L, MCV 92.4, MCH 31.2, MCHC 33.8, RDW 14.6, Plt Count 179 D, MPV 8.5, Neut % (Auto) 74.3, Lymph % (Auto) 18.9, [place] % (Auto) 6.5, Eos % (Auto) 0.1, Baso % (Auto) 0.1, Neut # (Auto) 8.3 H, Lymph # (Auto) 2.1, [place] # (Auto) 0.7, Eos # (Auto) 0.0, Baso # (Auto) 0.0 12/19/19 08:23: Sodium 139, Potassium 3.7 D, Chloride 105, Carbon Dioxide 29, Anion Gap 8.7, BUN 18, Creatinine 0.93 D, Estimated Creat Clear 63, Estimated GFR 62, Est GFR ( Amer) 75 D, Glucose 116 H, Calcium 8.0 L I & O for Last 24 hours: Intake & Output 12/16/19 12/17/19 12/18/19 12/19/19 11:59 11:59 11:59 11:59 Intake Total 3500 / 3500 1440 / 1440 Output Total 715 / 715 270 / 270 Balance 2785 / 2785 1170 / 1170 Weight 312 lb 8 oz 313 lb 1 oz Narrative: Pleasant, alert, oriented x3. Morbid obesity limits her exam but she has good air movement. Able to pull 18 mL's off incentive spirometer. Heart rate regular. Extremity exam per orthopedics. Assessment and Plan (1) History of total left hip arthroplasty Current visit: Yes Status: Acute Category: Surgical Code(s): Z96.642 - Presence of left artificial hip joint (2) Anxiety Current visit: No Status: Chronic Category: Medical Code(s): F41.9 - Anxiety disorder, unspecified (3) HTN (hypertension) Current visit: No Status: Chronic Qualifiers: Hypertension type: essential hypertension Qualified Code(s): I10 - Essential (primary) hypertension Category: Medical Code(s): I10 - Essential (primary) hypertension (4) Tobacco dependence syndrome Current visit: No Status: Chronic Category: Medical Code(s): F17.200 - Nicotine dependence, unspecified, uncomplicated - Assessment and plan all Dx Assessment and Plan for all problems:: Good postoperative improvement. I think patient would benefit from intensive inpatient/skilled rehab. We will investigate with the [facility] facility.
--- NOTE | 2019-12-19 13:08 | Progress Note ---
Subjective Date: 12/19/19 Time: 12:15 Principal diagnosis: Status post total hip arthroplasty, left hip Interval history: Patient is status post LEFT total hip arthroplasty post op day #2. Patient is lying down on the bed and says she is doing well and reports no problems. Patient has some pain as expected with mobilization and says it's well- controlled with medication. No history of any nausea or vomiting. No history of any cough, chest pain, shortness of breath or palpitations. Patient says she is eating and drinking well. No history of any distal tingling or numbness. PN: Obj Ex Vital signs: Temp Pulse Resp BP Pulse Ox 99.0 F 94 H 18 105/62 L 97 12/19/19 12:00 12/19/19 12:00 12/19/19 12:00 12/19/19 12:00 12/19/19 12:00 Narrative: Laboratory Results - last 24 hr 12/19/19 08:23: WBC 11.2 H D, RBC 2.99 L, Hgb 9.3 L, Hct 27.6 L, MCV 92.4, MCH 31.2, MCHC 33.8, RDW 14.6, Plt Count 179 D, MPV 8.5, Neut % (Auto) 74.3, Lymph % (Auto) 18.9, [place] % (Auto) 6.5, Eos % (Auto) 0.1, Baso % (Auto) 0.1, Neut # (Auto) 8.3 H, Lymph # (Auto) 2.1, [place] # (Auto) 0.7, Eos # (Auto) 0.0, Baso # (Auto) 0.0 12/19/19 08:23: Sodium 139, Potassium 3.7 D, Chloride 105, Carbon Dioxide 29, Anion Gap 8.7, BUN 18, Creatinine 0.93 D, Estimated Creat Clear 63, Estimated GFR 62, Est GFR ( Amer) 75 D, Glucose 116 H, Calcium 8.0 L Exam General appearance: Morbidly obese; alert, active, awake, no acute distress Cardiovascular: regular rate & rhythm, normal peripheral pulses Respiratory: No respiratory distress noted, speaks in full sentences ABD: soft and non tender Neuro: alert, awake, oriented x 3 Psych: Appropriate mood and affect On examination of the lower extremities the limb lengths are equal. Thigh and calf are soft and nontender. On examination of the LEFT hip the dressings are clean, dry and intact. I have removed the surgical drain and changed the dressings. There is no soakage of the dressings. The wound looks clean and healthy. No evidence of any infection or other complications is noted. Distal pulses are 2+. Distal sensation is intact to light touch throughout. No motor d eficits noted distally. - Urinary Catheter Management Fried Cath placed during this visit: no Progress Note: A&P (1) History of total left hip arthroplasty Status: Acute Current Visit: Yes (2) Anxiety Status: Chronic Current Visit: No (3) HTN (hypertension) Status: Chronic Current Visit: No (4) Tobacco dependence syndrome Status: Chronic Current Visit: No Assessment and Plan for All Diagnoses:: I have reviewed the clinical findings and progress with the patient. Patient is doing well and reports no problems. Her postop H&H today is 9.3/27.6; I have started her on oral ferrous sulfate. Patient is mobilizing well weightbearing as tolerated on the LEFT side with the walker and to continue the same. Continue DVT prophylaxis. Continue abduction pillow when in bed and continue standard precautions for the posterior approach hip replacement for 6 weeks postop. Case management looking into discharge planning. Recommend DVT prophylaxis for 6 weeks postop-postoperatively she is started on oral Xarelto. Continue medical management as per Dr. Enriquez.
--- NOTE | 2019-12-20 15:42 | Discharge Summary ---
General - General Admission date:: 12/17/19 <Ajith Tate - 12/21/19 13:15> 12/17/19 <Hans Candelaria - 12/20/19 15:52> Discharge date: 12/21/19 <Ajith Tate - 12/21/19 13:15> HPI HPI: Ms. Briseno is a pleasant 54-year-old female with significant arthritis in her hips who presented yesterday for left total hip arthroplasty. She has multiple comorbidities consisting of hypertension, morbid obesity, depression, arthritis, tobacco dependence that complicate her care. Tolerated surgery well and was assessed this morning on exam. Medicine was consulted for comanagement of her comorbidities. This morning she complains of pain in her hip but denies any chest pain or shortness of breath. Ate some of her breakfast but states "my eyes were bigger than my stomach". Urine output decreased somewhat overnight necessitating IV fluid resuscitation. Blood pressure well controlled. Reviewed labs and op report this morning. <Hans Candelaria - 12/20/19 15:52> Hospital Course Hospital Course: Medicine was consulted for comanagement of comorbidities during admission. Continued home regimen of medications with good tolerance. Patient was transitioned to our service for the last day of admission for consistency of care with Dr. Candelaria rotating off service. Patient had no episodes overnight. Hemodynamically stable. Pain well controlled. Afebrile. Medically stable for discharge to skilled care for rehab. <Ajith Tate - 12/21/19 13:15> Following a difficult but uncomplicated primary total hip arthroplasty patient was admitted to the inpatient ramires and has progressed well. Her postoperative check x-ray was satisfactory with good fixation of the components. Patient was advised to ambulate weightbearing as tolerated on the LEFT side. Patient managed this very well using a walker. Her pain is well controlled with oral as needed pain medication. The surgical incision is clean and dry without any active discharge or signs of infection. Left lower extremity distal neurovascular status is intact. No clinical evidence of DVT. Patient is eating and drinking well without any problems. Patient is medically stable at the time of discharge. The dressings were changed and the surgical drain removed on the second postoperative day and the wound is healthy and healing well. No signs of any erythema, induration or discharge noted. Patient was started on Xarelto 10 mg daily for DVT prophylaxis after surgery. Distal neurovascular status in both lower extremities is intact. Pedal pulses 1+ bilaterally and fully sensate distally. No clinical evidence of DVT noted. Patient was cleared for discharge by physical therapy. Prior to discharge, the wound is clean and dry. The patient's vital signs have been stable throughout and she has been apyrexial. [facility]. Condition at discharge: improved and stable. Treatments and Procedures: Total hip arthroplasty, left hip; date of surgery 12/17/2019. <Hans Candelaria 12/20/19 15:52> Objective Vital signs: Temp Pulse Resp BP Pulse Ox 98.2 F 89 18 104/66 L 98 12/21/19 08:00 12/21/19 08:00 12/21/19 08:00 12/21/19 08:00 12/21/19 08:00 <Ajith Tate 12/21/19 13:15> Temp Pulse Resp BP Pulse Ox 98.2 F 102 H 18 125/62 98 12/20/19 12:00 12/20/19 12:00 12/20/19 12:00 12/20/19 12:00 12/20/19 12:00 <Hans Candelaria 12/20/19 15:52> no acute distress, obese, cooperative <Ajith Tate 12/21/19 13:15> no acute distress, obese, cooperative <Hans Candelaria 12/20/19 15:52> - *Routine HEENT Exam Head: Present: normocephalic <Hans Candelaria 12/20/19 15:52> Eye: Present: EOMI, PERRL <Ajith Tate 12/21/19 13:15> Present: EOMI <Hans Candelaria 12/20/19 15:52> ENT: Present: mucous membranes moist <Ajith Tate 12/21/19 13:15> Present: mucous membranes moist <Hans Candelaria 12/20/19 15:52> - *Routine Neck Exam Present: supple, full ROM, trachea midline. Absent: JVD <Ajith Tate 12/21/19 13:15> Present: supple, full ROM, trachea midline <Hans Candelaria 12/20/19 15:52> - *Routine Respiratory Exam Present: CTA bilaterally. Absent: accessory muscle use, respiratory distress <Ajith Tate 12/21/19 13:15> Present: CTA bilaterally <Hans Candelaria 12/20/19 15:52> - *Routine Cardiovascular Exam Present: RRR, Normal S1, Normal S2. Absent: murmur <Ajith Tate 12/21/19 13:15> Present: RRR, Normal S1, Normal S2 <Hans Candelaria 12/20/19 15:52> - *Routine Abdominal Exam Present: soft, normoactive bowel sounds. Absent: tenderness <Hans Candelaria 12/20/19 15:52> - *Routine Extremities Exam Present: edema (Trace). Absent: cyanosis, clubbing <Ajith Tate 12/21/19 13:15> Comments: Agree with exam as above <Ajith Tate 12/21/19 13:15> On examination of the lower extremities the limb lengths are equal. Thigh and calf are soft and nontender. On examination of the LEFT hip the dressings are clean, dry and intact. There is no soakage of the dressings. No evidence of any infection or other complications noted. Distal pulses are 1+. Distal sensation is intact. Patient demonstrates good range of active knee, foot and ankle movements. <Hans Candelaria 12/20/19 15:52> - *Routine Skin Exam Present: intact, warm <Hans Candelaria 12/20/19 15:52> - *Routine Neurological Exam Present: alert, oriented X3, moving all extremities, normal tone, normal speech <Hans Candelaria 12/20/19 15:52> - Routine Psychiatric Exam Present: normal affect, cooperative <Hans Candelaria 12/20/19 15:52> DS: Diagnosis - Discharge Diagnosis (1) History of total left hip arthroplasty Status: Acute (2) Anxiety Status: Chronic (3) HTN (hypertension) Status: Chronic (4) Tobacco dependence syndrome Status: Chronic <Ajith Tate 12/21/19 13:15> (1) History of total left hip arthroplasty Status: Acute (2) Anxiety Status: Chronic (3) HTN (hypertension) Status: Chronic (4) Tobacco dependence syndrome Status: Chronic <Hans Candelaria - 12/20/19 15:30> Discharge Plan - Patient Discharge Instructions ACTIVITY: Ambulate as tolerated, Other (Posterior approach hip precautions including abduction wedge between the legs when in bed.) <Hans Candelaria - 12/20/19 15:52> DIET: regular diet <Hans Candelaria - 12/20/19 15:52> Patient Instructions: Hip Replacement, DI for Hip Replacement, DI for Surgical Site Infection <Ajith Tate - 12/21/19 13:15> Forms: <Ajith Tate - 12/21/19 13:15> - Follow up Plan Follow up with: Hans Candelaria MD [Staff Physician] - 2 weeks <Ajith Tate - 12/21/19 13:15> Disposition: er [facility] <Ajith Tate - 12/21/19 13:15> Home Medications: Home Medications Medication Instructions Recorded Confirmed Type amiloride 5 mg tablet 5 mg PO DAILY 06/19/19 12/17/19 History cyclobenzaprine 10 mg tablet 10 mg PO HS 06/19/19 12/17/19 History diazepam 10 mg tablet 10 mg PO BID 06/19/19 12/17/19 History furosemide 20 mg tablet 20 mg PO DAILY 06/19/19 12/17/19 History gabapentin 800 mg tablet 800 mg PO TID 06/19/19 12/17/19 History lisinopril 20 mg tablet 20 mg PO DAILY 06/19/19 12/17/19 History ibuprofen 800 mg tablet 800 mg PO TID PRN 07/04/19 12/17/19 History venlafaxine 150 mg 150 mg PO DAILY cap 07/04/19 12/18/19 History capsule,extended release 24 hr carvedilol 12.5 mg tablet 12.5 mg PO BID 10/30/19 12/17/19 History Chlorhexidine Gluconate 1 applic TOPICAL ONCE 12/07/19 12/17/19 History Oxybutynin Chloride [Ditropan Xl] 10 mg PO BID 12/07/19 12/17/19 History Magnesium Oxide [Mag-Ox 400mg Tab] 400 mg PO BID 12/18/19 12/18/19 History Mupirocin [Bactroban 2% Ointment 1 applic TOPICAL BID 12/18/19 12/18/19 History 22gm tube] Venlafaxine HCl [Venlafaxine HCl 75 mg PO HS 12/18/19 12/18/19 History ER] Docusate Sodium [Docusate Sodium 100 mg PO BID #30 cap 12/20/19 Rx 100mg Cap] Ferrous Sulfate [Ferrous Sulfate 325 mg PO BID #120 tab 12/20/19 Rx 325mg Tablet] Oxycodone HCl/Acetaminophen 1 - 2 tab PO Q6H PRN #60 tab 12/20/19 Rx [Percocet 5/325mg tablet] Rivaroxaban [Xarelto 10mg tablet] 10 mg PO DAILY #40 tab 12/20/19 Rx <Ajith Tate - 12/21/19 13:15> Prescriptions/Medication Reconciliation: New Oxycodone HCl/Acetaminophen [Percocet 5/325mg tablet] 1 - 2 tab PO Q6H PRN #60 tab PRN Reason: Moderate To Severe Pain Docusate Sodium [Docusate Sodium 100mg Cap] 100 mg PO BID #30 cap Ferrous Sulfate [Ferrous Sulfate 325mg Tablet] 325 mg PO BID #120 tab Rivaroxaban [Xarelto 10mg tablet] 10 mg PO DAILY #40 tab Continued furosemide 20 mg tablet 20 mg PO DAILY lisinopril 20 mg tablet 20 mg PO DAILY amiloride 5 mg tablet 5 mg PO DAILY cyclobenzaprine 10 mg tablet 10 mg PO HS gabapentin 800 mg tablet 800 mg PO TID diazepam 10 mg tablet 10 mg PO BID venlafaxine 150 mg capsule,extended release 24 hr 150 mg PO DAILY cap carvedilol 12.5 mg tablet 12.5 mg PO BID Oxybutynin Chloride [Ditropan Xl] 10 mg PO BID Venlafaxine HCl [Venlafaxine HCl ER] 75 mg PO HS Magnesium Oxide [Mag-Ox 400mg Tab] 400 mg PO BID Discontinued ibuprofen 800 mg tablet 800 mg PO TID PRN PRN Reason: pain Chlorhexidine Gluconate 1 applic TOPICAL ONCE Mupirocin [Bactroban 2% Ointment 22gm tube] 1 applic TOPICAL BID <Ajith Tate - 02/07/20 13:15> - Problem Reconciliation Problems Reviewed?: Yes <Ajith Tate - 12/21/19 13:15> Yes <Hans Candelaria - 12/20/19 15:52> - Additional Information Additional Information: Our recommendations on discharge include physical therapy with weightbearing as tolerated and standard postoperative rehab for primary total hip replacement via posterior approach. Patient was also advised to keep the leg elevated and ice the hip on a regular basis. At this stage it is permissible to take a shower and allow the incision to get wet with shower water. After padding the area dry, the wound can be left open. Patient has absorbable sutures and Dermabond Prineo skin closure system. Do not remove the Dermabond Prineo dressings. To continue mobilizing weightbearing as tolerated on the LEFT side with the walker and transition to a cane as she progresses. Standard physical therapy and postoperative precautions as for a posterior approach hip replacement. Keep the abduction wedge between the legs when patient is in bed and also during sleep for 6 weeks postop. Patient will follow up with me in the office in approximately 12-14 days for wound check and removal of the Dermabond Prineo dressing. Recommend 10 mg of Xarelto p.o. daily for 6 weeks postop for DVT prophylaxis. Please feel free to call our office at [phone] or via the hospital farm tractor operator [phone] for any orthopedic questions or concerns. <Hans Candelaria - 12/20/19 15:52>
--- NOTE | 2019-12-20 15:56 | Progress Note ---
Subjective Date: 12/20/19 Time: 15:00 Principal diagnosis: Status post total hip arthroplasty, left hip Interval history: Patient is status post LEFT total hip arthroplasty post op day #3. Patient is lying down in the bed and says is doing well and reports no problems. She says her pain is well controlled with as needed pain medication. She reports that she has worked the farthest today and it went well. No history of any nausea or vomiting. No history of any cough, chest pain, shortness of breath or palpitations. Patient says she is eating and drinking well. No history of any distal tingling or numbness. PN: Obj Ex Vital signs: Temp Pulse Resp BP Pulse Ox 98.2 F 102 H 18 125/62 98 12/20/19 12:00 12/20/19 12:00 12/20/19 12:00 12/20/19 12:00 12/20/19 12:00 Narrative: Exam General appearance: alert, active, awake, no acute distress Cardiovascular: regular rate & rhythm, normal peripheral pulses Respiratory: No respiratory distress noted, speaks in full sentences ABD: soft and non tender Neuro: alert, awake, oriented x 3 Psych: normal mood and affect On examination of the lower extremities the limb lengths are equal. Thigh and calf are soft and nontender. On examination of the LEFT hip the dressings are clean, dry and intact. There is no soakage of the dressings. No evidence of any infection or other complications is noted. Distal pulses are 1+. Distal sensation is intact to light touch throughout. No motor deficits noted distally. - Urinary Catheter Management Fried Cath placed during this visit: no Progress Note: A&P (1) History of total left hip arthroplasty Status: Acute Current Visit: Yes (2) Anxiety Status: Chronic Current Visit: No (3) HTN (hypertension) Status: Chronic Current Visit: No (4) Tobacco dependence syndrome Status: Chronic Current Visit: No Assessment and Plan for All Diagnoses:: I have reviewed the clinical findings and progress with the patient. Patient is doing well and reports no problems. Patient is mobilizing well weightbearing as tolerated on the LEFT side with the walker and to continue the same. Continue DVT prophylaxis. Continue abduction pillow when in bed and continue standard precautions for the posterior approach hip replacement. Patient has been accepted by [facility] for rehab and awaiting insurance authorization before discharge. Recommend DVT prophylaxis for 6 weeks postop- the appropriate agents include Lovenox, Aspirin 325 mg, Xarelto (Rivaroxaban), Eliquis (apixaban) and Coumadin. Follow-up in my office in 2 weeks time with check x-ray. Please feel free to call our office at [phone] for any orthopaedic questions. Medical management as per Dr. Enriquez.
== END 2019-12-21 14:00 | DRG 470 ==
LOC: 2ND 09:29 → OR 09:29 → OBSVTOIN 20:38 → OB 12-19 11:03
PROVIDERS: ADMIT Orthopaedic Surgery; ATTEND Orthopaedic Surgery
CPT/HCPCS: 36415; 73502; 80048; 81001; 82962; 85007; 85014; 85018; 85025; 86850; 86870; 87086; 96374; 97110; 97116; 97166; 97530; 97535; C1713; C1776; J2704; J3370

== ENCOUNTER → 2020-01-15 11:34 | Outpatient (CLI) | payer OTHER, SELFPAY ==
[2020-01-15 12:18] LABS: Basophils % 0.4 % (0.1-2.0); Hematocrit 39.3 % (37.0-47.0); Hemoglobin 12.6 g/dL (12.2-16.2); Lymphocytes # 2.3 K/mm3 (0.7-4.5); Lymphocytes % 22.5 % (10-50); Mean Corpuscular HGB Conc 32.1 g/dL (31.8-35.4); Mean Corpuscular Hemoglobin 30.8 pg (27.0-31.2); Mean Corpuscular Volume 95.7 fl (81-99); Mean Platelet Volume 7.7 fl (7.4-10.4); Monocytes # 0.6 K/mm3 (0.1-1.0); Monocytes % 5.6 % (1.7-9.3); Neutrophils # 7.4 K/mm3 (1.8-7.8); Neutrophils % 71.4 % (37.0-80.0); Platelet Count 312 K/mm3 (142-424); Red Blood Count 4.11 M/mm3 (4.20-5.40); Red Cell Distribution Width 15.4 % (11.5-17.5); White Blood Count 10.4 K/mm3 (4.8-10.8)
[2020-01-15 13:14] LABS: Alanine Aminotransferase 16 U/L (12-78); Albumin Level 4.2 g/dl (3.5-5.0); Albumin/Globulin Ratio 1.4 (1.1-1.8); Alkaline Phosphatase 88 U/L (38-126); Anion Gap 12.3 mEq/L (5-15); Aspartate Amino Transferase 25 U/L (14-36); Bilirubin,Total 0.2 mg/dl (0.2-1.3); Blood Urea Nitrogen 13 mg/dl (7-17); Calcium 9.9 mg/dl (8.4-10.2); Carbon Dioxide 32 mmol/L (22.0-30.0); Chloride 102 mmol/L (98-107); Estimated Glomerular Filt Rate 74 ml/min (>60); GFR (African American) 90 ML/MIN (>60); Glucose 127 mg/dl (74-100); Potassium 4.3 mmoL/L (3.5-5.1); Sodium 142 mmol/L (136-145); Total Protein,Serum 7.2 g/dl (6.3-8.2)
== END ==
PROVIDERS: Visit Provider Internal Medicine Adolescent Medicine
DX: D64.9 Anemia, unspecified (principal); I10 Essential (primary) hypertension
CPT/HCPCS: 36415; 80053; 85025

== ENCOUNTER → 2020-02-20 09:37 | Outpatient (CLI) | payer OTHER, SELFPAY ==
--- NOTE | 2020-02-20 09:41 | XR_ITS ---
PROCEDURE: XR HIP LT 2-3V W/PELVIS CLINICAL INDICATION: sp LT total hip arthroplasty Follow-up hip replacement COMPARISON: XR HIP LT 2-3V W/PELVIS from 12/17/2019 FINDINGS: Status post placement of left hip hemiarthroplasty with good alignment and no evidence of orthopedic complication. Incidental note made of mild osteoarthritic change of the right hip and some minimal hypertrophic changes at the lateral acetabular lips on both sides.. IMPRESSION: Good alignment status post left hip hemiarthroplasty. Dictated by: Garret Stephenson MD 02/20/2020 11:15 Electronically signed by Garret Stephenson MD in [place] 02/20/2020 11:15
== END ==
PROVIDERS: PCP Internal Medicine Adolescent Medicine; Visit Provider Orthopaedic Surgery
DX: M25.552 Pain in left hip (principal); Z96.642 Presence of left artificial hip joint
CPT/HCPCS: 73502

== ENCOUNTER → 2020-06-10 13:56 | Outpatient (CLI) | payer OTHER, SELFPAY ==
--- NOTE | 2020-06-10 14:00 | XR_ITS ---
PROCEDURE: XR HIP LT 2-3V W/PELVIS CLINICAL INDICATION: left total hip arthroplasty Left hip replacement on 12/17/2019. COMPARISON: XR HIP LT 2-3V W/PELVIS from 02/20/2020 FINDINGS: Degenerative changes are seen in the visualized lower lumbosacral spine. Moderate right hip osteoarthrosis. There is a left hip replacement. No acute fracture or dislocation is evident. No lytic or blastic change. Unremarkable soft tissues. IMPRESSION: No acute findings. Uncomplicated left hip replacement. Moderate right hip osteoarthrosis. Lower lumbosacral degenerative spondylosis. Dictated by: Anika Perez 06/10/2020 17:13 Electronically signed by Anika Perez in [facility] 06/10/2020 17:13
== END ==
PROVIDERS: PCP Internal Medicine Adolescent Medicine; Visit Provider Orthopaedic Surgery
DX: M25.552 Pain in left hip (principal); Z96.642 Presence of left artificial hip joint
CPT/HCPCS: 73502

== ENCOUNTER → 2021-01-21 15:05 | Outpatient (CLI) | payer OTHER, SELFPAY ==
--- NOTE | 2021-01-21 15:11 | XR_ITS ---
PROCEDURE: XR HIP LT 2-3V W/PELVIS CLINICAL INDICATION: sp LT total hip arthroplasty, dos 12/17/2019 COMPARISON: CR XR HIP LT 2-3V W/PELVIS from 06/10/2020 FINDINGS: Status post left hip hemiarthroplasty with good alignment and no evidence of orthopedic complication. Osteoarthritic changes are present in the right hip. IMPRESSION: No change status post left hip hemiarthroplasty Dictated by: Garret Stephenson MD 01/21/2021 16:18 Garret Stephenson MD in [facility] 01/21/2021 16:18
== END ==
PROVIDERS: PCP Internal Medicine Adolescent Medicine; Visit Provider Orthopaedic Surgery
DX: M25.552 Pain in left hip (principal); Z96.642 Presence of left artificial hip joint
CPT/HCPCS: 73502

== ENCOUNTER 2021-02-19 10:13 | Emergency (ER) | payer OTHER, SELFPAY ==
[2021-02-19 10:14] VITALS: BP 129/75; PULSE 90; RESP 17; TEMP 36.6; O2SAT 99; BMI 101.4
--- NOTE | 2021-02-19 10:42 | [facility].EDGENADL ---
ED Disposition Clinical Impression: Forehead laceration Qualifiers: Encounter type: initial encounter Qualified Code(s): S01.81XA - Laceration without foreign body of other part of head, initial encounter Cervical strain, acute Qualifiers: Encounter type: initial encounter Qualified Code(s): S16.1XXA - Strain of muscle, fascia and tendon at neck level, initial encounter Disposition: Home, Self-Care Condition on Discharge: Good Instructions: DI for Neck Sprain, DI for Closed Head Injury, DI for Laceration Repair-Skin Glue Additional Instructions: Tylenol for pain. Follow-up with your primary care provider for further evaluation of possible nodule on your thyroid gland. Additional instructions for HEAD INJURY: See your physician as soon as possible for further evaluation. Return immediately if severe headache, vomiting, problems with vision or speech, numbness or weakness of the extremities, or severe neck pain. Referrals: Ajith Tate MD [Primary Care Provider] - - Critical Care Critical Care Time: No Attestation: On 02/19/21, the high probability of a clinically significant, sudden or life threatening deterioration of the following system(s) required my full and direct attention, intervention and personal management. The time I documented below is in addition to time spent performing reported procedures but includes the following listed in this critical care notation. Medical Decision Making - Jeramie Inquiry Pt receiving controlled substance: No Vital Signs: 02/19/21 10:14 02/19/21 10:50 Temperature 97.9 F Temperature Source Oral Pulse Rate 85 Pulse Rate [Right] 90 Respiratory Rate 17 Blood Pressure 140/70 Blood Pressure [Right Arm] 129/75 Blood Pressure Mean [Right Arm] 93 02 Sat by Pulse Oximetry 99 93 L Oxygen Delivery Method Room Air Orders (Tests/Meds): ED MEDICATIONS Discontinued Medications Generic Name Dose Route Start Last Admin Trade Name Freq PRN Reason Stop Dose Admin Tetanus/Reduced Diphtheria/Acell Pertussis 0.5 ml 02/19/21 10:49 02/19/21 11:09 Tet/Diphth/Pert-Adult 0.5ml Syringe IM 02/19/21 10:50 0.5 ml .ONCE ONE Administration - CT Data CT Scan: Head, C-Spine Time Received: 11:[address] Reviewed: Yes: I have viewed the radiologist's interpretation Findings Narrative: PROCEDURE: CT HEAD/BRAIN WO CON CLINICAL INDICATION: fall Head injury with headache/pain, contusion, abrasion or hematoma COMPARISON: No exams were available for comparison TECHNIQUE: Axial images obtained. All CT scans at the facility use one or more dose reduction, viz: automated exposure control, ma/kV adjustment per patient size (including targeted exams where dose is matched to indication, i.e. head), or iterative reconstruction technique. FINDINGS: No midline shift, mass effect, intracranial hemorrhage, hydrocephalus, or extra-axial fluid collection is evident. Nonspecific decreased attenuation in the periventricular region suggesting microvascular changes.. Artifact is present from right ear piercing. The calvarium has an unremarkable appearance. No mastoid effusion. No sinus air-fluid level. IMPRESSION: No acute intracranial finding Dictated by: Garret Stephenson MD 02/19/2021 11:45 Garret Stephenson MD in [facility] 02/19/2021 11:45 PROCEDURE: CT CERVICAL SPINE WO CON CLINICAL INDICATION: fall Neck injury with pain, contusion/abrasion or hematoma, cervical sprain/strain the COMPARISON: No exams were available for comparison TECHNIQUE: Axial images obtained with sagittal and coronal reformats. All CT scans at the facility use one or more dose reduction, viz: automated exposure control, ma/kV adjustment per patient size (including targeted exams where dose is matched to indication, i.e. head), or iterative reconstruction technique. Axial spiral CT scanning performed of the cervical spine beginning at the base of the
--- NOTE | 2021-02-19 10:48 | CT_ITS ---
PROCEDURE: CT HEAD/BRAIN WO CON CLINICAL INDICATION: fall Head injury with headache/pain, contusion, abrasion or hematoma COMPARISON: No exams were available for comparison TECHNIQUE: Axial images obtained. All CT scans at the facility use one or more dose reduction, viz: automated exposure control, ma/kV adjustment per patient size (including targeted exams where dose is matched to indication, i.e. head), or iterative reconstruction technique. FINDINGS: No midline shift, mass effect, intracranial hemorrhage, hydrocephalus, or extra-axial fluid collection is evident. Nonspecific decreased attenuation in the periventricular region suggesting microvascular changes.. Artifact is present from right ear piercing. The calvarium has an unremarkable appearance. No mastoid effusion. No sinus air-fluid level. IMPRESSION: No acute intracranial finding Dictated by: Garret Stephenson MD 02/19/2021 11:45 Garret Stephenson MD in [facility] 02/19/2021 11:45
--- NOTE | 2021-02-19 10:48 | CT_ITS ---
PROCEDURE: CT CERVICAL SPINE WO CON CLINICAL INDICATION: fall Neck injury with pain, contusion/abrasion or hematoma, cervical sprain/strain the COMPARISON: No exams were available for comparison TECHNIQUE: Axial images obtained with sagittal and coronal reformats. All CT scans at the facility use one or more dose reduction, viz: automated exposure control, ma/kV adjustment per patient size (including targeted exams where dose is matched to indication, i.e. head), or iterative reconstruction technique. Axial spiral CT scanning performed of the cervical spine beginning at the base of the skull and continuing to the upper T-spine. 3-D multiplanar reconstruction with 3-D manipulation of volumetric data set in image rendering was completed by the radiologist and/or technologist with the supervision of the radiologist on independent workstation. FINDINGS: There is normal alignment. There is mild reversal of the cervical lordosis which could be due to patient positioning or muscle spasm. No fracture or dislocation is evident. Multilevel cervical spondylosis. Bridging osteophytes are present anteriorly at C2-C3-C4-C5 and C6 consistent with DISH. C2-C3: Anterior osteophytes. C3-C4: Anterior osteophytes with mild degenerative disc disease with canal stenosis of 10 mm. C4-C5: Mild degenerative disc disease with 3 mm anterolisthesis of C4. Anterior and posterior osteophytes are present with canal stenosis. Left-sided facet hypertrophic change with left-sided foraminal narrowing. The canal at this level measures approximately 9 mm. C5-C6: Anterior osteophytes. Degenerative disc disease with canal stenosis measuring approximately 8 mm. Bilateral foraminal narrowing. C6-C7: Degenerative disc disease with canal stenosis and uncovertebral hypertrophy on the left with left-sided foraminal narrowing. Heterogeneous density is present within the thyroid gland on both sides with enlargement of the left lobe of the thyroid gland. Nonemergent ultrasound may provide further evaluation with suspected nodule in the left lobe at 2.7 cm. Scattered small lymph nodes are present in the neck. IMPRESSION: 1. No acute fracture. 2. DISH of the cervical spine. 3. Multilevel cervical spondylosis with canal stenosis and foraminal narrowing. Please see above for detailed description at each level. 4. Enlarged thyroid gland with heterogeneous density and suspected 2.7 cm left thyroid nodule which may be better evaluated with nonemergent ultrasound Dictated by: Garret Stephenson MD 02/19/2021 11:50 Garret Stephenson MD in [facility] 02/19/2021 11:50
[2021-02-19 10:50] VITALS: BP 140/70; PULSE 85; O2SAT 93
--- NOTE | 2021-02-19 11:30 | PC.NURSE ---
Pt with rad.
--- NOTE | 2021-02-19 11:38 | PC.NURSE ---
Pt returned from rad.
[2021-02-19 12:07] VITALS: BP 142/69; PULSE 78; RESP 16; TEMP 36.6; O2SAT 98
== END 2021-02-19 12:09 | disposition home or self-care (01) ==
PROVIDERS: Emergency Provider Emergency Medicine; PCP Internal Medicine Adolescent Medicine
DX: S01.81XA Laceration without foreign body of other part of head, initial encounter (principal); S16.1XXA Strain of muscle, fascia and tendon at neck level, initial encounter; W01.198A Fall on same level from slipping, tripping and stumbling with subsequent striking against other object, initial encounter; Y92.013 Bedroom of single-family (private) house as the place of occurrence of the external cause; I10 Essential (primary) hypertension; K21.9 Gastro-esophageal reflux disease without esophagitis; F41.8 Other specified anxiety disorders; Z23 Encounter for immunization; F12.10 Cannabis abuse, uncomplicated; F17.210 Nicotine dependence, cigarettes, uncomplicated
CPT/HCPCS: 12002; 70450; 72125; 90715; 99282

== ENCOUNTER → 2021-03-31 15:55 | Outpatient (CLI) | payer OTHER, SELFPAY ==
[2021-03-31 16:40] LABS: Chloride 104 mmol/L (98-107)
[2021-03-31 16:41] LABS: Potassium 3.8 mmoL/L (3.5-5.1); Sodium 141 mmol/L (136-145)
[2021-03-31 16:43] LABS: Alanine Aminotransferase 24 U/L (12-78); Alkaline Phosphatase 96 U/L (38-126); Anion Gap 11.8 mEq/L (5-15); Aspartate Amino Transferase 25 U/L (14-36); Bilirubin,Total 0.6 mg/dl (0.2-1.3); Blood Urea Nitrogen 18 mg/dl (7-17); Carbon Dioxide 29 mmol/L (22.0-30.0); Estimated Glomerular Filt Rate 74 ml/min (>60); GFR (African American) 89 ML/MIN (>60)
[2021-03-31 16:44] LABS: Albumin Level 4.2 g/dl (3.5-5.0); Albumin/Globulin Ratio 1.4 (1.1-1.8); Calcium 8.9 mg/dl (8.4-10.2); Chol/HDL Ratio 3.7 (1-3.5); Cholesterol 157 mg/dl (140-200); Globulin 2.9 g/dL (1.3-3.2); Glucose 108 mg/dl (74-100); HDL Cholesterol 43 mg/dl (40-60); Magnesium 1.9 mg/dl (1.6-2.3); Total Protein,Serum 7.1 g/dl (6.3-8.2); Triglycerides 122 mg/dl (30-150); VLDL Cholesterol 24 mg/dL (0-40)
[2021-03-31 16:55] LABS: Direct LDL Cholesterol 93.67 mg/dL (100-129)
[2021-03-31 17:15] LABS: Thyroid Stimulating Hormone 0.33 uIU/mL (0.465-4.68)
[2021-04-02 05:13] LABS: Cancer Antigen (CA) 125 7.2 U/mL (0.0-38.1)
== END ==
PROVIDERS: Nurse Practitioner Family; Visit Provider Nurse Practitioner Family
DX: C56.9 Malignant neoplasm of unspecified ovary (principal); I10 Essential (primary) hypertension; E78.1 Pure hyperglyceridemia; E04.1 Nontoxic single thyroid nodule; E83.42 Hypomagnesemia
CPT/HCPCS: 36415; 80053; 80061; 83735; 84443; 86316

== ENCOUNTER → 2021-04-06 14:33 | Outpatient (CLI) | payer OTHER, SELFPAY ==
--- NOTE | 2021-04-06 14:37 | US_ITS ---
PROCEDURE: US THYROID CLINICAL INDICATION: THYROID NODULE Nodules seen on recent CT scan. Obesity. Enlarged nodular thyroid. COMPARISON: CT CT CERVICAL SPINE WO CON from 02/19/2021 FINDINGS: Right lobe: 2.2cm x 5.7cm x 1.5cm. 5 mm hypoechoic nodule upper pole. 13 mm hypoechoic nodule mid polar region. 8 mm hypoechoic nodule lower pole. Nodule evaluation somewhat limited due to body habitus. Left lobe: 2.4cm x 5.3cm x 2.7cm. 2 cm hypoechoic nodule upper pole. 1 cm hypoechoic nodule mid polar region. 2 cm hypoechoic nodule lower pole. 9 mm hypoechoic nodule lower pole. Isthmus: Mildly thickened at 5 mm 6 mm hypoechoic nodule in the isthmus noted on the left Additional findings: Multiple hypoechoic nodules as described above. No obvious internal calcifications, irregularity of the nodules, or taller than wide nodules. IMPRESSION: Findings are compatible with multinodular goiter. Consider six-month follow-up to confirm stability of the nodules as nodule evaluation is somewhat limited due to patient's body habitus. Dictated by: Garret Stephenson MD 04/07/2021 08:12 Garret Stephenson MD in [facility] 04/07/2021 08:12
== END ==
PROVIDERS: PCP Internal Medicine Adolescent Medicine; Visit Provider Nurse Practitioner Family
DX: E04.1 Nontoxic single thyroid nodule (principal)
CPT/HCPCS: 76536

== ENCOUNTER 2021-06-20 19:52 | Emergency (ER) | payer OTHER, SELFPAY ==
[2021-06-20 19:54] VITALS: BP 146/82; PULSE 91; RESP 19; TEMP 36.8; O2SAT 94; BMI 46.8
--- NOTE | 2021-06-20 20:14 | HMH.EDUTC ---
[facility] [place] Disposition Clinical Impression: Laceration of finger of left hand Qualifiers: Encounter type: initial encounter Finger: little finger Damage to nail status: without damage Foreign body presence: without foreign body Qualified Code(s): S61.217A - Laceration without foreign body of left little finger without damage to nail, initial encounter Disposition: Home, Self-Care Condition on Discharge: Good Instructions: DI for Open Laceration Additional Instructions: Keep clean and dry. Continue antibiotic ointment. Will splint finger to allow better wound closure but unfortunately we cannot suture it 5-6 days later. Referrals: Srinath Enriquez MD [Primary Care Provider] - Time of Disposition: 20:17 Medical Decision Making - Jeramie Inquiry Pt receiving controlled substance: No [facility] [place] HPI - General Stated complaint: AO 0831 lac to L little finger Time Seen by Provider: 06/20/21 20:14 - History of Present Illness Provider Complaint: Patient lacerated the base of her left 5th digit 5-6 days ago while mowing the yard. She has been using antibiotic ointment. She did not seek medical treatment for stitches. She is now concerned because it keeps splitting back open and has a raised ridge. Onset (ago): day(s) (5-6) Location: left, upper extremity Radiation: non-radiation Relieving factors: none Exacerbating factors: none Associated symptoms: denies other symptoms Treatments prior to arrival: none - Related Data Home Medications Medication Instructions Recorded Confirmed amiloride 5 mg tablet 5 mg PO DAILY 06/19/19 01/21/21 cyclobenzaprine 10 mg tablet 10 mg PO HS 06/19/19 01/21/21 diazepam 10 mg tablet 10 mg PO BID 06/19/19 01/21/21 furosemide 20 mg tablet 20 mg PO DAILY 06/19/19 01/21/21 gabapentin 800 mg tablet 800 mg PO TID 06/19/19 01/21/21 lisinopril 20 mg tablet 20 mg PO DAILY 06/19/19 01/21/21 ibuprofen 800 mg tablet 800 mg PO TID PRN 07/04/19 01/21/21 carvedilol 12.5 mg tablet 12.5 mg PO BID 10/30/19 01/21/21 Oxybutynin Chloride [Ditropan Xl] 10 mg PO BID 12/07/19 01/21/21 Magnesium Oxide [Mag-Ox 400mg Tab] 400 mg PO BID 12/18/19 01/21/21 Venlafaxine HCl [Venlafaxine HCl 75 mg PO HS 12/18/19 01/21/21 ER] Previous Rx's Medication Instructions Recorded Docusate Sodium [Docusate Sodium 100 mg PO BID #30 cap 12/20/19 100mg Cap] Ferrous Sulfate [Ferrous Sulfate 325 mg PO BID #120 tab 12/20/19 325mg Tablet] Oxycodone HCl/Acetaminophen 1 - 2 tab PO Q6H PRN #60 tab 12/20/19 [Percocet 5/325mg tablet] Rivaroxaban [Xarelto 10mg tablet] 10 mg PO DAILY #40 tab 12/20/19 Allergies Allergy/AdvReac Type Severity Reaction Status Date / Time lorazepam [From Ativan] AdvReac Severe FACIAL Verified 01/21/21 16:01 TWITCHING, [facility] History - Hepatitis A Screen Attestation statement:: This patient has been screened for Hepatitis A risk factors. I have reviewed the patient's past medical history: Yes Medical History: Reports:: Anxiety, Cancer, Depression, Gastroesophageal Reflux Disease(GERD), Hypertension, Migraine Denies:: Diabetes Mellitus Type 1, Diabetes Mellitus Type 2, Internal Pacemaker, MRSA, Seizures Other Medical History: Reports: Arthritis. Denies: Blood Transfusion Reaction Comment: morbid obesity Laterality Cases: Left: Total Hip Replacement, Right: Arthroscopy Knee, Bilateral: Carpal Tunnel Release Other Surgeries: Yes: Colonoscopy, Hysterectomy-Total. No: Pacemaker Amputation: No Fractures: No - Social History Smoking Status: Current every day smoker Tobacco Type: cigarettes # Packs/Day (cigarettes): 1 Alcohol Intake: never Substance Use Type: marijuana Occupational Status: unemployed Housing: house Household Members: none - Psychiatric History Pschychiatric History:: Reports:: Anxiety, Depression Family Hx:: Coronary Artery Disease Comment: Mother-Valve Replacement ROS Obtained: Yes All systems reviewed & no additional complaints - Musc
[2021-06-20 21:14] VITALS: BP 146/82; PULSE 91; RESP 19; TEMP 36.8; O2SAT 94
== END 2021-06-20 21:15 | disposition home or self-care (01) ==
PROVIDERS: Emergency Provider Physician Assistant; PCP Internal Medicine Adolescent Medicine
DX: S61.217A Laceration without foreign body of left little finger without damage to nail, initial encounter (principal); W45.8XXA Other foreign body or object entering through skin, initial encounter; Y92.017 Garden or yard in single-family (private) house as the place of occurrence of the external cause; F41.8 Other specified anxiety disorders; I10 Essential (primary) hypertension; K21.9 Gastro-esophageal reflux disease without esophagitis; F17.210 Nicotine dependence, cigarettes, uncomplicated; Z96.642 Presence of left artificial hip joint; Z79.899 Other long term (current) drug therapy
CPT/HCPCS: 99202; G0463

== ENCOUNTER → 2022-04-28 09:49 | Outpatient (CLI) | payer OTHER, SELFPAY ==
--- NOTE | 2022-04-28 09:54 | XR_ITS ---
FINAL REPORT CLINICAL HISTORY: Bilateral knee pain FINDINGS: LEFT KNEE 4 views were obtained. There is no acute fracture or dislocation. There is moderate degenerative change which is worse medially. There is no soft tissue abnormality. IMPRESSION: Moderate degenerative change with no acute bony abnormality. Reviewed, Interpreted and Dictated by Hussein Huerta III, MD Transcribed by Cyndie Noble Authenticated and [facility]
--- NOTE | 2022-04-28 09:54 | XR_ITS ---
FINAL REPORT CLINICAL HISTORY: Bilateral knee pain FINDINGS: RIGHT KNEE 4 views were obtained. There is no acute fracture or dislocation. There is moderate and severe degenerative change which is worse involving the medial compartment. There is a probable loose body posterior to the medial compartment measuring up to 27 mm. IMPRESSION: Moderate and severe degenerative change. Probable loose body posterior to the medial compartment. Reviewed, Interpreted and Dictated by Hussein Huerta III, MD Transcribed by Cyndie Noble Authenticated and . [facility]
== END ==
PROVIDERS: PCP Internal Medicine Adolescent Medicine; Visit Provider Orthopaedic Surgery
DX: M25.561 Pain in right knee (principal); M25.562 Pain in left knee
CPT/HCPCS: 73564

== ENCOUNTER → 2022-08-26 14:22 | Outpatient (CLI) | payer OTHER, SELFPAY ==
--- NOTE | 2022-08-26 14:34 | CT_ITS ---
FINAL REPORT TECHNIQUE: Axial images of the right lower extremity was performed by computed tomography. This study was performed with techniques to keep radiation doses as low as reasonably achievable (ALARA). Individualized dose reduction techniques using automated exposure control or adjustment of mA and/or kV according to the patient's size were employed. CLINICAL HISTORY: right knee pain. scan is for the protocol, Conformis. exam is to plan for total rt knee replacement. FINDINGS: Hip: There are moderate degenerative changes of the right hip. There is a probable enchondroma in the proximal femur measuring 19 mm. Knee: There is severe tri compartment osteoarthritis. There is a posterior loose body measuring 17 mm. There is a 19 mm medial fluid collection of uncertain etiology, could represent chronic hematoma or ganglion. Ankle: There is no acute bony abnormality. No significant degenerative changes identified. IMPRESSION: Severe degenerative changes of the knee. Reviewed, Interpreted and Dictated by Hussein Huerta III, MD Transcribed by Yokasta Ventura Authenticated and [facility]
== END ==
PROVIDERS: PCP Internal Medicine Adolescent Medicine; Visit Provider Orthopaedic Surgery
DX: M17.11 Unilateral primary osteoarthritis, right knee (principal)
CPT/HCPCS: 73700

== ENCOUNTER → 2022-09-23 11:36 | Outpatient (CLI) | payer OTHER, SELFPAY ==
[2022-09-23 11:42] LABS: Microscopic, Urine URINE MICROSCOPIC (MICROSCOPIC)
[2022-09-23 12:00] LABS: Basophils # 0.1 K/mm3 (0-0.2); Eosinophils # 0.2 K/mm3 (0.0-0.4); Eosinophils % 1.4 % (0.1-12.0); Hematocrit 44.2 % (37.0-47.0); Hemoglobin 14.4 g/dL (12.2-16.2); Lymphocytes # 2.3 K/mm3 (0.7-4.5); Lymphocytes % 22.1 % (10-50); Mean Corpuscular HGB Conc 32.5 g/dL (31.8-35.4); Mean Corpuscular Hemoglobin 31.6 pg (27.0-31.2); Mean Corpuscular Volume 97.2 fl (81-99); Mean Platelet Volume 7.8 fl (7.4-10.4); Monocytes # 0.5 K/mm3 (0.1-1.0); Monocytes % 4.3 % (1.7-9.3); Neutrophils # 7.5 K/mm3 (1.8-7.8); Neutrophils % 71.2 % (37.0-80.0); Platelet Count 242 K/mm3 (142-424); Red Blood Count 4.55 M/mm3 (4.20-5.40); Red Cell Distribution Width 13.9 % (11.5-17.5); White Blood Count 10.5 K/mm3 (4.8-10.8)
--- NOTE | 2022-09-23 12:19 | XR_ITS ---
FINAL REPORT TECHNIQUE: Chest PA & Lateral CLINICAL HISTORY: current smoker, chronic cough COMPARISON: 12/05/2019 FINDINGS: 2 views of the chest were performed. The heart size is normal. The mediastinum is within normal limits. There is no acute cardiopulmonary process. There are no pleural effusions. There is no pneumothorax. The bony thorax appears intact. IMPRESSION: No acute cardiopulmonary process. Reviewed, Interpreted and Dictated by Ted Gama MD Transcribed by Cher Sterling Authenticated and [facility]
[2022-09-23 12:27] LABS: Chloride 103 mmol/L (98-107); Sodium 145 mmol/L (136-145)
[2022-09-23 12:28] LABS: Potassium 4.4 mmoL/L (3.5-5.1)
[2022-09-23 12:30] LABS: Alanine Aminotransferase 17 U/L (12-78); Alkaline Phosphatase 105 U/L (38-126); Anion Gap 12.4 mEq/L (5-15); Aspartate Amino Transferase 24 U/L (14-36); Bilirubin,Total 0.3 mg/dl (0.2-1.3); Blood Urea Nitrogen 25 mg/dl (7-17); Carbon Dioxide 34 mmol/L (22.0-30.0); Estimated Glomerular Filt Rate 51 ml/min (>60); GFR (African American) 62 ML/MIN (>60)
[2022-09-23 12:31] LABS: Albumin/Globulin Ratio 1.7 (1.1-1.8); Calcium 9.5 mg/dl (8.4-10.2); Globulin 2.4 g/dL (1.3-3.2); Glucose 108 mg/dl (74-100); Total Protein,Serum 6.4 g/dl (6.3-8.2)
[2022-09-23 12:39] LABS: Appearance,Urine TURBID (Clear); Bilirubin,Urine Negative (Negative); Blood, Urine Negative (Negative); Color,Urine YELLOW (Yellow); Glucose,Urine (UA) Negative (Negative); Ketones,Urine Negative (Negative); Leukocyte Esterase,Urine 2+ (Negative); Nitrate,Urine Negative (Negative); PH,Urine 5.5 (5.0-8.5); Protein,Urine Negative (Negative); Specific Gravity, Urine 1.025 (1.005-1.030); Urobilinogen,Urine 0.2 EU/dl (0.2)
[2022-09-23 13:15] LABS: Bacteria,Urine 1+ /lpf; Squamous Epithelial Cell,Urine 20-50 #/hpf (0-5); Trichomonas,Urine 2+ /lpf
== END ==
PROVIDERS: PCP Internal Medicine Adolescent Medicine; Visit Provider Orthopaedic Surgery
DX: Z01.818 Encounter for other preprocedural examination (principal); M25.561 Pain in right knee
CPT/HCPCS: 36415; 71046; 80053; 81001; 85025; 86850; 86870; 87086

== ENCOUNTER 2022-09-27 16:33 | Observation (INO) | payer OTHER, SELFPAY ==
--- NOTE | 2022-09-23 12:04 | SW/DCPLANNER ---
Addendum entered by Usha Whitfield 09/28/22 11:18: Kim hare/ [facility] stated that she is not able to accept this patient at this time. I have updated patient and she stated that she plans to return home with family/friends and return to [facility] for outpatient PT. Patient will discharge home today. Addendum entered by Usha Whitfield 09/28/22 07:57: I spoke with patient this AM regarding in room regarding discharge plans. Patient has expressed an interest in referral being faxed to [facility]. I will fax patient information to Kim hare/ [facility] this AM and follow up. Patient stated that if she is not able to discharge to [facility] she will have family/friends at home to assist her. I will continue to follow up with patient and MD. Original Note: I called and spoke with this patient regarding discharge plans after upcoming right TKA on 09/27/2022. I explained to patient that PT will evaluated her and could give these options: home and return for outpatient PT, home w/ home health or placement. I explained to patient that at this time home health agencies are not accepting this patient's insurance. Due to patient have Medicaid insurance w/ no income I explained to her it may not be possible to find a SNF level of care that is able to accept her. Patient stated that in 2019 she had a hip replacement and discharge to [facility] from [facility]. I expressed this could be an option only if strict criteria was met and [facility] has bed availability once medically stable for discharge. I did have a lengthy discussion with patient about the importance of preparing w/ family and friends to return home w/ help and return as an outpatient due to this may being the only available option. Patient expressed she understood and my name/number was present to this patient for any questions prior to surgery.
[2022-09-23 13:39] VITALS: BMI 46.0
[2022-09-27] VITALS (18 sets, daily range): BP systolic 104–152; BP diastolic 60–81; PULSE 76–94; RESP 12–20; TEMP 36.3–43; O2SAT 89–100; BMI 47.3
--- NOTE | 2022-09-27 11:26 | P.PN_ITS ---
[facility] Medical History Abnormal EKG Anxiety Arthroplasty of knee planned Chest pain Dyspnea History of alcoholism HTN (hypertension) Menopause Ovarian cancer Preoperative clearance Sleep apnea Tobacco dependence syndrome Surgical History History of hip replacement, total Family History Sister Breast cancer Rectal cancer Social History Smoking Status: Current every day smoker tobacco type: cigarettes packs per day: 1 alcohol intake: former substance use type: marijuana current occupational status: unemployed Travel in the last 8 weeks: None household members: significant other and none housing: house current occupational exposures/hazards: No caffeine: Yes do you feel safe at home: Yes victim of physical abuse: No victim of emotional abuse: No victim of sexual abuse: No would you like helpful sources: No [facility] Anesthesia Checklist Patient Identification Patient Identification: Arm Band and Verbal (Name & ) Structural Data Planned Operative Procedure/s: Right Knee Arthroplasty NPO Status Verified Time NPO: 21:30 Additional verifications Anesthesia Reactions: No Hx Blood Transfusions: No Blood Transfusion Reaction: No Airway Assessment C-Spine Mobility Assessed: Yes TMJ Mobility Assessed: Yes Dentition: Edentulous Neurological Assessment Level of Consciousness: Awake, Alert and Appropriate Anesthesia Plan Anesthesia Type: Spinal
[2022-09-27 11:28] LABS: Coronavirus 19, PCR Not Detected (NotDetected); Influenza A, PCR Not Detected (NotDetected); Influenza B, PCR Not Detected (NotDetected)
--- NOTE | 2022-09-27 15:30 | P.OP_ITS ---
Date of procedure: 09/27/22 Pre-op Diagnosis:: End-stage osteoarthritis right knee Post-op Diagnosis:: Same Procedure performed:: Right total knee arthroplasty Surgeon:: Jaime Wilson DO Senior Service Technician(s):: Megan RENE BIRD TRAPPER:: Merritt Rhodes Anesthesia: spinal Estimated blood loss (mL): 50 Operative findings:: End-stage osteoarthritis right knee Operative note:: Patient is then 5 preoperatively. Right knee marked yes my initials. Transferred operative suite. Anesthesia gave spinal anesthesia. Patient then placed upon operating bed. Right lower extremity was prepped and draped in normal sterile fashion. Once prepped and draped final operative timeout performed to identify proper patient procedure and extremity. Everyone involved the case agreed. No counter indications to beginning. Did receive preoperative antibiotics. Marking pen was used to osmani plan incision midline the knee. Esmarch was used to exsanguinate extremity pneumatic tourniquet plated 300 mmHg. Knee was flexed. Skin knife was used to incise through skin. Careful dissection was taken down to identify the capsule of the knee. Standard medial parapatellar approach was utilized and the capsule was opened. Patella was everted. Knee flexed. Anterior aspect of medial lateral meniscus sacrificed. ACL sacrificed. Soft tissue retractors placed to expose the femur. Using the custom CT generated cutting guides from conformance to distal femoral cutting block was pinned in the place. Distal femoral cut was then made. The anterior guide was then placed with the distal femoral cutting resection guide placed resection of the distal femur was then performed. The chamfer block was pinned into place and the anterior and posterior chamfer cuts were made. Trial femur then impacted into place and the lug holes drilled. Tension was then brought to the tibia. Patient's [place] slope was 14 degrees. 10 degree patient's specific slope was then dialed on the T1 guide which was pi nned into place the T1 cutting alignment was then used and placed at 0 resection of the tibia was performed once resection was complete additional 2 mm were taken on the tibial cut. Tibial trial plate was then selected and placed in place knee was placed through range of motion size 6 polygave proper fit and fill throughout range of motion. Tibial was then drilled and punched for the final tibial implant trial. Final implants were opened on the back table with the femur and the tibia and a 29 patella the patella cutting guide was used for measured resection of patella and size 29 was a proper fit. Once components were opened cement was mixed and the femoral and tibial and patellar components were cemented into place size 6 polywas placed knee was placed through range of motion found to be very stable cement was allowed to harden with excess cement removed with the knee in full extension. Once the cement was hardened the final polywas selected and impacted into place knee was placed through range of motion found to be very stable Tourniquet was deflated hemostasis obtained electrocautery copious irrigation wound performed knee taken through range of motion again capsule was closed with a running #1 strata fix suture. Deep layers closed with 0 Vicryl subcutaneous 2-0 Vicryl skin with surgical clips sterile dressing placed from toe to thigh patient waken anesthesia taken recovery in stable condition Tourniquet time (min): 110 Condition: stable Disposition: PACU Complications:: None apparent
--- NOTE | 2022-09-27 15:43 | P.PNANES_ITS ---
[facility] Anesthesia Record Part I Anesthesia Record I Intake, IV Amount: 2,000 Estimated blood loss (mL): 50 Urine output (mL): 300 Blood Pressure: 125/72 SaO2: 95 Pulse Rate: 94 Respiratory Rate: 12 Temperature: 98.3 F Patient is:: Awake and Stable Stable to PACU at:: 15:30
--- NOTE | 2022-09-27 15:46 | XR_ITS ---
FINAL REPORT CLINICAL HISTORY: post replacement FINDINGS: RIGHT KNEE AP and lateral views of the right knee were obtained. There are postoperative changes of total knee replacement. No immediate hardware complication is seen. There are overlying skin andrew. Gas is noted in the joint space. IMPRESSION: Total right knee replacement without immediate complication seen. Reviewed, Interpreted and Dictated by Ted Gama MD Transcribed by Alea Cervantes Authenticated and [facility]
[2022-09-27 16:07] LABS: Microscopic,Cath URINE MICROSCOPIC (MICROSCOPIC)
--- NOTE | 2022-09-27 16:34 | PC.NURSE ---
patient arrived to floor from surgery at 16:15.
[2022-09-27 18:04] LABS: Appearance,Urine/Cath CLEAR (Clear); Bilirubin,Cath Negative (Negative); Blood, Urine/Cath Negative (Negative); Color,Urine/Cath YELLOW (Yellow); Glucose,Urine/Cath (UA) Negative (Negative); Ketones,Urine/Cath Negative (Negative); Leukocyte Esterase,Cath Negative (Negative); Nitrate,Cath Negative (Negative); PH,Urine/Cath 5.5 (5.0-8.5); Protein,Urine/Cath Negative (Negative); Specific Gravity, Urine/Cath 1.025 (1.005-1.030); Urobilinogen,Cath 0.2 EU/dl (0.2)
[2022-09-27 18:25] LABS: WBC,Urine/Cath Occasional #/hpf (0-3)
[2022-09-28] VITALS: BP 149/78; PULSE 85; RESP 18; TEMP 36.8; O2SAT 95
[2022-09-28 04:00] VITALS: BP 122/77; PULSE 75; RESP 19; TEMP 37.3; O2SAT 94
--- NOTE | 2022-09-28 05:51 | PC.NURSE ---
pt is a&ox4. no acute changes since previous assessment. c/o pain and has been medicated prn per jan. dressing to right leg is cdi, polar pack noted. CB in reach
[2022-09-28 06:32] LABS: Basophils # 0.1 K/mm3 (0-0.2); Basophils % 1.1 % (0.1-2.0); Eosinophils # 0.2 K/mm3 (0.0-0.4); Eosinophils % 1.8 % (0.1-12.0); Hematocrit 40.5 % (37.0-47.0); Hemoglobin 13.2 g/dL (12.2-16.2); Lymphocytes # 2.1 K/mm3 (0.7-4.5); Lymphocytes % 18.9 % (10-50); Mean Corpuscular HGB Conc 32.6 g/dL (31.8-35.4); Mean Corpuscular Hemoglobin 31.1 pg (27.0-31.2); Mean Corpuscular Volume 95.2 fl (81-99); Mean Platelet Volume 8.4 fl (7.4-10.4); Monocytes # 0.7 K/mm3 (0.1-1.0); Monocytes % 6.1 % (1.7-9.3); Neutrophils # 7.9 K/mm3 (1.8-7.8); Neutrophils % 72.1 % (37.0-80.0); Platelet Count 199 K/mm3 (142-424); Red Blood Count 4.25 M/mm3 (4.20-5.40); Red Cell Distribution Width 13.8 % (11.5-17.5)
--- NOTE | 2022-09-28 07:33 | HMH.PHAINT1 ---
Pharmacy Intervention Comments: Medication reconciliation completed via external fill history and patient interview. Of note, patient confirms taking amlodipine, amiloride, carvedilol, and lisinopril (2 tablets daily instead of 1 for a total of 40 mg) as indicated in home medication list. -Laura Johnson, PharmD Candidate 2022
--- NOTE | 2022-09-28 07:52 | P.PNANES_ITS ---
[facility] Anesthesia Record Part II Anesthesia Record Part II Discharge Time: 16:00 Destination: Second Floor PACU nurse assessment reviewed?: Yes Patient Condition:: Good Anesthesia Complications:: None Swallowing reflex intact?: Yes Cyanosis?: No Blood Pressure: 135/71 Pulse Rate: 87 Temperature: 98.1 F Mental Status: Alert & Oriented Pain level:: 0 Nausea and/or vomitting:: None Intake, IV Amount: 2,000
[2022-09-28 07:53] VITALS: BP 135/71; PULSE 87; TEMP 36.7
[2022-09-28 08:00] VITALS: BP 197/94; PULSE 79; RESP 14; TEMP 37; O2SAT 96
--- NOTE | 2022-09-28 08:07 | HMH.PTEV ---
Physical Therapy Evaluation Rehab PT IP Evaluation Start: 09/27/22 15:41 Freq: ONCE Status: Active Protocol: Document 09/28/22 07:30 LIANA (Rec: 09/28/22 08:07 LIANA [id number]) Subjective/History History History This is the initial IP PT evaluation for Betty Briseno. Pt is a 57 y/o female admitted to [facility] for R TKA. Pt had TKA yesterday 09/27/22 Subjective Subjective Pt reports some discomfort, states she lives in single story home w/ significant other Rehab PT IP Eval Objective Appearance Patient Behavior Appropriate,Cooperative Patient Orientation Place,Name,Birthday,Year, Situation Difficulty following instructions none Speech Pattern Clear,Appropriate Ambulation Patient Able to Ambulate Yes Ambulation Observation IP General Gait Pattern Observation Antalgic Gait,Decrease Weight Bear (R),Decrease Stride Lngth (R) Ambulation Distance (feet) 15 Ambulation Assistive Device Rolling Walker Ambulation Ability Supervision/Stand by,Contact Guard/Hand Hold Balance Ability to Arise Able, uses arms to help Sitting Balance Steady, safe Standing Balance Steady, wide stance Dynamic Sitting Balance Ability Normal Dynamic Standing Balance Ability Fair Transfers Bed Transfer Ability Independent Chair Transfer Ability Independent Sit to Stand Bed Transfer Ability Supervision/Stand by Sit to Stand Chair Transfer Ability Supervision/Stand by ROM RLE PT ROM Status ABN Abnormal ROM Comment 2/2 pain MMT RLE PT MMT ABN Abnormal MMT Grade 2/2 pain Rehab PT IP prob,goals,plan Problems Date of Evaluation: 09/28/22 PT IP Problems Gait,Balance,Self care,Safety Rehab Potential Rehab Potential Good Equipment Needs Assistive Devices Straight Cane,Rolling / Wheeled Walker Plan PT Intervention Plan Transfers,Gait,Balance,Self care,Safety,Therapeutic Exercise PT Plan Frequency BID Duration LOS Discharge Goals Bed Transfer Ability Independent,Supervision/Stand by Sit to Stand Chair Transfer Ability Independent,Supervision/Stand by Ambulation Assistive
--- NOTE | 2022-09-28 08:53 | P.PN_ITS ---
Subjective *Date: 09/28/22 *Time: 08:53 Interval history: Patient doing okay. Decompensation of pain 4 AM. Pain improved. No other complaints. Ortho Exam (Inpt) Vital signs and Labs for Last 24 Hours: Temp Pulse Resp BP Pulse Ox 98.6 F 79 14 197/94 H 96 09/28/22 08:00 09/28/22 08:00 09/28/22 08:00 09/28/22 08:00 09/28/22 08:00 Laboratory Results - last 24 hr 09/27/22 11:25: SARS-CoV-2 (PCR) Not detected, Influenza A Untype (PCR) Not detected, Influenza Type B (PCR) Not detected 09/27/22 12:42: Urine Color Yellow, Urine Appearance Clear, Urine pH 5.5, Ur Specific Chappell 1.025, Urine Protein Negative, Urine Glucose (UA) Negative, Urine Ketones Negative, Urine Blood Negative, Urine Nitrate Negative, Urine B ilirubin Negative, Urine Urobilinogen 0.2, Ur Leukocyte Esterase Negative, Urine RBC None, Urine WBC Occasional, Ur Squamous Epith Cells None, Urine Bacteria None 09/28/22 06:15: WBC 11.0 H, RBC 4.25, Hgb 13.2, Hct 40.5, MCV 95.2, MCH 31.1, MCHC 32.6, RDW 13.8, Plt Count 199, MPV 8.4, Neut % (Auto) 72.1, Lymph % (Auto) 18.9, Frederick % (Auto) 6.1, Eos % (Auto) 1.8, Baso % (Auto) 1.1, Neut # (Auto) 7.9 H, Lymph # (Auto) 2.1, Frederick # (Auto) 0.7, Eos # (Auto) 0.2, Baso # (Auto) 0.1 I & O for Labs for Last 24 Hours: Intake & Output 09/25/22 09/26/22 09/27/22 09/28/22 23:59 23:59 23:59 23:59 Intake Total 2460 / 2460 2240 / 2240 Output Total 900 / 900 725 / 725 Balance 1560 / 1560 1515 / 1515 Weight 293 lb 4 oz Comment:: Right knee: Dressing clean dry and intact. No calf tenderness. No evidence of DVT. Grossly neurovascular intact. Assessment and Plan *Assessment and plan (1) Status post total knee replacement: Status: Acute Category: Surgical Code(s): Z96.659 - Presence of unspecified artificial knee joint Plan Had a discussion with the patient today regarding intraoperative findings prognostic outcomes. Will make arranges for discharge home today. Would benefit from home health evaluation. Arrange outpatient physical therapy. Weightbearing as tolerated. May change dressing tomorrow. Aspirin 325 mg p.o. twice daily for 6 weeks. Return to clinic for staple removal 2 weeks.
--- NOTE | 2022-09-28 11:20 | P.CONPHA_ITS ---
Pharmacy Intervention Comments: Discharge counseling completed at bedside with the patient. Discussed new medications (aspirin and oxycodone/APAP) and continued medications. Explained the indication for each new medication and possible side effects/mitigation strategies. Emphasized that new pain medication contains APAP and patient v erbalized understanding. No questions or concerns at this time. -Laura Johnson, PharmD Candidate 2022
[2022-09-28 11:52] VITALS: BP 147/78; PULSE 72; RESP 16; TEMP 36.4; O2SAT 98
--- NOTE | 2022-09-28 14:03 | CARE MANAGER ---
Patient needs walker and beside commode. Patient chose [facility], demographics and order faxed. They will deliver to [facility] prior to discharge.
--- NOTE | 2022-09-28 15:52 | EXP.HPDC ---
General Admission date:: 09/27/22 Discharge date: 09/28/22 *Admission Date: 09/27/22 *Chief complaint: End-stage osteoarthritis right knee *History of present illness: 57-year-old female with significant end-stage osteoarthritis right knee failed considerable outpatient conservative treatment. Failed to have resolution of symptoms and wished to undergo total knee arthroplasty to address severe end-stage osteoarthritis of the right knee. Presented for such. [facility] Medical History Abnormal EKG Anxiety Arthroplasty of knee planned Chest pain Dyspnea History of alcoholism HTN (hypertension) Menopause Ovarian cancer Preoperative clearance Sleep apnea Tobacco dependence syndrome Surgical History History of hip replacement, total Family History Sister Breast cancer Rectal cancer Social History Smoking Status: Current every day smoker tobacco type: cigarettes packs per day: 1 alcohol intake: former substance use type: marijuana current occupational status: unemployed Travel in the last 8 weeks: None household members: significant other and none housing: house current occupational exposures/hazards: No caffeine: Yes do you feel safe at home: Yes victim of physical abuse: No victim of emotional abuse: No victim of sexual abuse: No would you like helpful sources: No Review of Systems Constitutional Constitutional: Denies body ache(s), Denies chills and Denies difficulty sleeping Eyes Eyes: Reports system reviewed and no additional complaints, except as documented ENT Ears, Nose, Mouth, and Throat: Reports system reviewed and no additional complaints, except as documented *Cardiovascular Cardiovascular: Denies diaphoresis, Denies dyspnea and Denies dyspnea on exertion *Respiratory Respiratory: Denies dyspnea and Denies dyspnea on exertion *Gastrointestinal Gastrointestinal: Reports system reviewed and no additional complaints, except as documented *Genitourinary Genitourinary: Reports urinary urgency *Musculoskeletal Musculoskeletal: Reports limited range of motion and Reports muscle weakness Integumentary/Breasts Skin/Breast: Reports system reviewed and no additional complaints, except as documented *Neurologic Neurologic: Reports system reviewed and no additional complaints, except as documented Psychiatric Psychiatric: Reports system reviewed and no additional complaints, except as documented Endocrine Endocrine: Reports system reviewed and no additional complaints, except as documented Exam Data for Last 24 hours Vital signs and Labs for Last 24 Hours: Temp Pulse Resp BP Pulse Ox 97.6 F 72 16 147/78 H 98 09/28/22 11:52 09/28/22 11:52 09/28/22 11:52 09/28/22 11:52 09/28/22 11:52 Laboratory Results - last 24 hr 09/27/22 12:42: Urine Color Yellow, Urine Appearance Clear, Urine pH 5.5, Ur Specific [place] 1.025, Urine Protein Negative, Urine Glucose (UA) Negative, Urine Ketones Negative, Urine Blood Negative, Urine Nitrate Negative, Urine Bilirubin Negative, Urine Urobilinogen 0.2, Ur Leukocyte Esterase Negative, Urine RBC None, Urine WBC Occasional, Ur Squamous Epith Cells None, Urine Bacteria None 09/28/22 06:15: WBC 11.0 H, RBC 4.25, Hgb 13.2, Hct 40.5, MCV 95.2, MCH 31.1, MCHC 32.6, RDW 13.8, Plt Count 199, MPV 8.4, Neut % (Auto) 72.1, Lymph % (Auto) 18.9, [place] % (Auto) 6.1, Eos % (Auto) 1.8, Baso % (Auto) 1.1, Neut # (Auto) 7.9 H, Lymph # (Auto) 2.1, [place] # (Auto) 0.7, Eos # (Auto) 0.2, Baso # (Auto) 0.1 I & O for Last 24 hours: Intake & Output 09/25/22 09/26/22 09/27/22 09/28/22 23:59 23:59 23:59 23:59 Intake Total 2460 / 2460 2240 / 2240 Output Total 900 / 900 725 / 725 Balance 1560 / 1560 1515 / 1515 Weight 293 lb 4 oz Constituti
--- NOTE | 2022-09-29 10:29 | CARE MANAGER ---
Spoke with patient for post-discharge phone interview, was discussing discharge plans with patient and phone cut off. Have attempted to call back, no answer. Left message.
== END 2022-09-28 13:43 | disposition home or self-care (01) ==
LOC: 2ND 16:34
PROVIDERS: Admitting Provider Orthopaedic Surgery; PCP Internal Medicine Adolescent Medicine; Visit Provider Orthopaedic Surgery
PROC: (CPT 27447; principal; 2022-09-27 10:30)
DX: M17.11 Unilateral primary osteoarthritis, right knee (principal); I10 Essential (primary) hypertension; F17.210 Nicotine dependence, cigarettes, uncomplicated; Z79.899 Other long term (current) drug therapy; Z20.822 Contact with and (suspected) exposure to COVID-19
CPT/HCPCS: 27447; 36415; 73560; 81001; 85025; 96374; 97116; 97162; C1776; C9803; G0378; J2704; U0003; U0005

== ENCOUNTER → 2022-11-09 12:01 | Outpatient (CLI) | payer OTHER, SELFPAY ==
--- NOTE | 2022-11-09 12:03 | XR_ITS ---
FINAL REPORT CLINICAL HISTORY: knee pain COMPARISON: September 27, 2022 FINDINGS: RIGHT KNEE 3 views of the right knee were obtained. There are postoperative changes from knee arthroplasty. There is no acute fracture or dislocation. Visualized joint spaces are normally aligned. Joint spaces are intact. Soft tissues are unremarkable. IMPRESSION: Postoperative changes, stable exam. Reviewed, Interpreted and Dictated by Hussein Huerta III, MD Transcribed by Cyndie Noble Authenticated and [facility]
== END ==
PROVIDERS: PCP Internal Medicine Adolescent Medicine; Visit Provider Orthopaedic Surgery
DX: M25.561 Pain in right knee (principal); Z96.651 Presence of right artificial knee joint
CPT/HCPCS: 73562

== ENCOUNTER → 2023-01-19 16:51 | Outpatient (CLI) | payer OTHER, SELFPAY ==
--- NOTE | 2023-01-19 16:54 | MM_ITS ---
PROCEDURE INFORMATION: Exam: MG Bilateral Screening 3D Mammography Exam date and time: 01/19/2023 4:43 PM Age: 57 years old Clinical indication: Screening examination. Her sister had breast cancer. TECHNIQUE: Imaging protocol: Bilateral Screening tomosynthesis and 2D mammography including computer-aided detection (CAD) when performed. COMPARISON: 1. MG SCBI MM Dig screening mamm BI w/CAD 06/05/2018 5:12 PM 2. MG DMSB DIG MAMM-SCREEN SIDDHARTHA W/CAD 12/16/2016 4:01 PM 3. MG DMSB DIG MAMM-SCREEN SIDDHARTHA 11/04/2015 3:41 PM 4. MG DMSB DIG MAMM-SCREEN SIDDHARTHA 08/08/2014 10:29 AM FINDINGS: MAMMOGRAPHY: Breast composition: The breasts are heterogeneously dense, which may obscure small masses. Mass: No significant change in scattered bilateral sub cm circumscribed masses. No suspicious mass. Architectural distortion: None. Calcifications: No suspicious calcifications. Asymmetric density: None. Skin thickening: None. Axillary adenopathy: None. Other: Left biopsy clip. IMPRESSION: No mammographic evidence of malignancy. Annual screening is recommended unless otherwise clinically indicated. ASSESSMENT: BI-RADS Category 2: Benign
== END ==
PROVIDERS: PCP Nurse Practitioner Family; Visit Provider Nurse Practitioner Family
DX: Z12.31 Encounter for screening mammogram for malignant neoplasm of breast (principal)
CPT/HCPCS: 77063; 77067

== ENCOUNTER → 2023-02-01 12:22 | Outpatient (CLI) | payer OTHER, SELFPAY ==
--- NOTE | 2023-02-01 12:28 | XR_ITS ---
FINAL REPORT CLINICAL HISTORY: s/p knee replacement COMPARISON: 11/09/2022 FINDINGS: RIGHT KNEE 3 views of the right knee were obtained. There is no acute fracture or dislocation. Patient is status post total joint replacement. Hardware is intact. Bones are osteopenic. No joint effusion is seen. Soft tissues are unremarkable. IMPRESSION: No acute bony abnormality. No significant change from prior exam. Reviewed, Interpreted and Dictated by Ted Gama MD Transcribed by Alea Cervantes Authenticated and [facility]
== END ==
PROVIDERS: PCP Nurse Practitioner Family; Visit Provider Orthopaedic Surgery
DX: M25.561 Pain in right knee (principal); Z96.651 Presence of right artificial knee joint
CPT/HCPCS: 73562

== ENCOUNTER 2023-02-03 16:00 | Outpatient (RCR) | payer OTHER, SELFPAY ==
--- NOTE | 2022-10-06 14:45 | HMH.PTOPEV ---
PT Outpatient Evaluation Rehab PT Outpatient Evaluation Start: 10/06/22 14:20 Freq: Status: Active Protocol: Document 10/06/22 14:20 LINCOLN (Rec: 10/06/22 14:44 LINCOLN [id number]) E-signed By Kali Damico, PT Outpatient Therapy Subjective History Subjective History Patient is a 57 year old female presenting to outpatient PT with reports R post-surgical knee pain S/P R TKA (9 days S/P). Patient reports a 20 year hx of R knee pain prior to surgery. Comorbidities include hx of ovarian cancer and L JEANMARIE. Chief Complaint Pain,Stiff,Swelling,Gives out/ Unstable,Paresthesia Symptom Type Ache,Sharp,Dull Symptoms Relieved By Rest/Positioning,Ice, Prescription Meds Symptoms Aggravated By Standing,Physical Activity, Walking Prior Functional Limitations Standing,Walking Current Functional Limitations Lifting,Housework,Driving, Sleeping,Standing,Squatting, Recreation Activity,Walking, Bending/Stooping Symptom Description Constant but Variable Level of pain today (0-10) 5 Pain scale - at its best (0-10) 5 Pain scale - at its worst (0-10) 10 Hip/Knee Eval Gait Observation General Gait Pattern Observation Antalgic Gait,Decrease Weight Bear (L) Assistive Device Assistive Devices Rolling / Wheeled Walker Palpation Tenderness right Knee Palpation Finding Tenderness Knee Palpation Overall Comment MJL 3/4 MMT Hip Strength Reason Not Measured Orthopedic Precautions Knee Strength Reason Not Measured Orthopedic Precautions ROM left Hip ROM Reason Not Measured Within Functional Limits Knee Extension Active Range of Motion ( -22 degrees) Knee Extension Passive Range of Motion ( -17 degrees) Knee Flexion Active Range of Motion ( 80 degrees) Knee Flexion Passive Range of Motion ( 83 degrees) Special Tests Knee Valgus Stress Test Negative Left Knee Varus Stress Test Negative Left Outpatient Therapy Assessment Impairments Problems/Impairmments Palpation Tenderness,Impaired Range of Motion,Impaired Strength,Impaired Gait Pattern ,Impaired Walking,Impaired Standing,Impaired Driving, Impaired Lifting,Impai
--- NOTE | 2022-11-04 15:54 | HMH.RHREAS ---
Rehab Reassessment Rehab OP Re-assessment Start: 11/04/22 15:49 Freq: Status: Active Protocol: Document 11/04/22 15:49 LINCOLN (Rec: 11/04/22 15:53 LINCOLN [id number]) E-signed By Kali Damico, PT Rehab Re-assessment Subjective Subjective Patient reports 70% improvement since start of care. Objective Objective Notes AROM: - MMT: WNL Pain: 3/10 today; 7/10 at worst over last week Neuro: WNL Special tests: - varus/valgus Assessment Progress Assessment Progressing as Expected Assessment Notes At this point, progression of ROM is main concern. Patient would benefit from continuig with skilled PT services in order to address function limitations with all standing/ ambulatory activities. Patient goals met STG 2 Goals Not Met All others Revised Goals NA Plan Plan Continue with current POC. Frequency of Therapy 2x/week Duration of therapy 4 weeks. Time and Billing Re-Eval Time 15 Re-Eval Billing Units 1 PHYSICIAN CERTIFICATION: I certify the specified therapy services for Betty Briseno are required, authorized, and reviewed every 30 days.
--- NOTE | 2022-12-08 16:05 | HMH.RHREAS ---
Rehab Reassessment Rehab OP Re-assessment Start: 11/04/22 15:49 Freq: Status: Active Protocol: Document 12/07/22 16:00 LINCOLN (Rec: 12/08/22 16:04 LINCOLN [id number]) E-signed By Kali Damico, PT Rehab Re-assessment Subjective Subjective Patient reports 75% improvement since start of care. I had a misstep the other day and tweaked my knee. It's been a little more sore than usual. Objective Objective Notes AROM: MMT: WNL Pain: 3/10 today; 7/10 at worst over last week Neuro: WNL Special tests: - varus/valgus Assessment Progress Assessment Slower Than Expected Assessment Notes At this point, progression of ROM continues to be main concern. Patient would benefit from continuig with skilled PT services in order to address function limitations with all standing/ ambulatory activities. Patient goals met STG 2 Goals Not Met All others Revised Goals NA Plan Plan Continue with current POC. Frequency of Therapy 2x/week Time and Billing Re-Eval Time 16 Re-Eval Billing Units 1 PHYSICIAN CERTIFICATION: I certify the specified therapy services for Betty Briseno are required, authorized, and reviewed every 30 days.
--- NOTE | 2023-01-05 17:02 | HMH.RHREAS ---
Rehab Reassessment Rehab OP Re-assessment Start: 11/04/22 15:49 Freq: Status: Active Protocol: Document 01/05/23 16:57 PHORISAIAH (Rec: 01/05/23 17:02 PHORNE [id number]) E-signed By Rojelio Leon, PT Rehab Re-assessment Subjective Subjective Pt c/o increased L medial knee grinding and popping which she has not c/o previpously. Pain at worst 5/10. Objective Objective Notes AROM: 05-90 deg MMT: WNL Pain: 2/10 today; 5/10 at worst over last week Neuro: WNL Assessment Progress Assessment Slower Than Expected Assessment Notes Pt has continued to follow HEP and PT plan of care well, but remains limited in AROM of the L knee. She also has very little increase in ROM from active to passive. She continues to have pain in the L knee with increased activity . Continued therapy for further ROM and strengthening of the L LE is warranted. Patient goals met ST,2 Goals Not Met All others Revised Goals NA Plan Plan Continue with current POC. Frequency of Therapy 2x/week Duration of therapy 4 wks Time and Billing Re-Eval Time 17 Re-Eval Billing Units 1 PHYSICIAN CERTIFICATION: I certify the specified therapy services for Betty Briseno are required, authorized, and reviewed every 30 days.
== END 2023-02-03 16:05 | disposition home or self-care (01) ==
LOC: PT 16:00
PROVIDERS: PCP Internal Medicine Adolescent Medicine; Visit Provider Orthopaedic Surgery
DX: M25.561 Pain in right knee (principal); Z96.651 Presence of right artificial knee joint
CPT/HCPCS: 97010; 97014; 97110; 97140; 97163; 97164; 97530; G0283

== ENCOUNTER → 2023-02-08 08:24 | Outpatient (CLI) | payer OTHER, SELFPAY ==
--- NOTE | 2023-02-08 08:28 | US_ITS ---
FINAL REPORT CLINICAL HISTORY: NODULE COMPARISON: March 2021 FINDINGS: THYROID ULTRASOUND The isthmus measures 5 mm. The right lobe of the thyroid measures 2.0 x 1.9 x 6.6 cm. There are multiple nodules some of which are cysts. In the upper pole the right thyroid is a 2.2 cm wider than tall TI-RADS 4 nodule. In the lower pole the right thyroid is a partial cystic and solid 2.1 cm wider than tall nodule that may contain punctate calcifications consistent with a TI-RADS 4. The left lobe of the thyroid measures 3.0 x 2.4 x 5.7 cm and contains multiple nodules. In the mid and lower pole of the left thyroid is a 2.5 cm mixed cystic and solid TI-RADS 3 nodule. A separate lower pole nodule is hypoechoic, wider than tall and measures 1.6 cm with possible punctate calcifications consistent with a TI-RADS 5. IMPRESSION: Multiple bilateral thyroid nodules favoring multinodular goiter. Some nodules have increased in size. Recommend bilateral FNA of the left TI-RADS 5 nodule and right TI-RADS 4 nodules. Reviewed, Interpreted and Dictated by Che Valdez MD Transcribed by Ralph Beltran Authenticated and [facility]
== END ==
PROVIDERS: PCP Nurse Practitioner Family; Visit Provider Nurse Practitioner Family
DX: E04.1 Nontoxic single thyroid nodule (principal)
CPT/HCPCS: 76536

== ENCOUNTER → 2023-03-11 09:49 | Outpatient (CLI) | payer OTHER, SELFPAY ==
--- NOTE | 2023-03-11 09:54 | US_ITS ---
FINAL REPORT CLINICAL HISTORY: ABNORMAL THYROID BIOPSY Merritt TRUJILLO FINDINGS: Ultrasound guided thyroid biopsy. HISTORY: Thyroid nodules PROCEDURE: After informed consent was obtained and a time-out was performed, the patient was initially prepped and draped in usual sterile fashion over the left neck. Utilizing local anesthesia and sterile technique with a 25-gauge needle, access to a left lower thyroid lobe lesion was obtained. Three passes were made. Subsequently a right upper pole lesion was targeted and 3 additional biopsies were performed. Thirdly, a right lower pole lesion was targeted and 3 biopsies were performed. The patient received no conscious sedation. The patient tolerated procedure well and left the department in good condition. IMPRESSION: Status post ultrasound guided biopsy of 3 thyroid nodules as detailed. Films reviewed , interpreted and dictated by Dr. Huerta Transcribed by Merritt Yip PA-C. Reviewed, Interpreted and Dictated by Hussein Huerta III, MD Transcribed by RONNIE Marquez Authenticated and . [facility]
== END ==
PROVIDERS: PCP Nurse Practitioner Family; Visit Provider Internal Medicine Adolescent Medicine
DX: R93.89 Abnormal findings on diagnostic imaging of other specified body structures (principal); E04.2 Nontoxic multinodular goiter
CPT/HCPCS: 10005; 10006 ×2; 76536; 76942

== ENCOUNTER 2023-08-02 16:39 | Observation (INO) | payer OTHER, SELFPAY ==
[2023-08-02] VITALS (9 sets, daily range): BP systolic 107–177; BP diastolic 58–98; PULSE 80–104; RESP 18–20; TEMP 37.5–39.2; O2SAT 95–99; BMI 45.7; BMI 48.2
[2023-08-02 16:53] LABS: Coronavirus 19, PCR Not Detected (NotDetected); Influenza A, PCR Not Detected (NotDetected); Influenza B, PCR Not Detected (NotDetected)
--- NOTE | 2023-08-02 17:06 | PC.NURSE ---
PT INITIAL O2 SAT WAS 87% ON RA PT PLACED ON 02 @ 2LPM VIA CANNULA O2 SAT INCREASED TO 98%
--- NOTE | 2023-08-02 17:26 | XR_ITS ---
PROCEDURE INFORMATION: Exam: XR Chest Exam date and time: 08/02/2023 5:44 PM Age: 58 years old Clinical indication: Cough and fever; Additional info: Productive cough, fever TECHNIQUE: Imaging protocol: Radiologic exam of the chest. Views: 2 views. COMPARISON: CR XR CHEST 2V 09/23/2022 12:20 PM FINDINGS: Lungs: Unremarkable. No consolidation. Pleural spaces: Unremarkable. No pleural effusion. No pneumothorax. Heart/Mediastinum: Stable cardiac and mediastinal contours. Bones/joints: There are degenerative changes of the thoracic spine. IMPRESSION: No dense parenchymal consolidation, pleural effusion, or pneumothorax.
[2023-08-02 17:33] LABS: VBG Base Excess 2.5 mmol/L (-2.4-2.3); VBG HCO3 27.4 mmol/L (23-30); VBG PCO2 45.4 mmol/L (35-51); VBG PO2 105.7 mmol/L (28-40); VBG Total CO2 28.8 mmol/L (23-27)
[2023-08-02 17:35] LABS: Basophils % 0.1 % (0.1-2.0); Eosinophils % 0.2 % (0.1-12.0); Hematocrit 39.8 % (37.0-47.0); Hemoglobin 12.8 g/dL (12.2-16.2); Lymphocytes % 6.8 % (10-50); Mean Corpuscular HGB Conc 32.2 g/dL (31.8-35.4); Mean Corpuscular Hemoglobin 30.4 pg (27.0-31.2); Mean Corpuscular Volume 94.2 fl (81-99); Mean Platelet Volume 8.2 fl (7.4-10.4); Monocytes % 6.3 % (1.7-9.3); Neutrophils % 86.6 % (37.0-80.0); Platelet Count 206 K/mm3 (142-424); Red Blood Count 4.22 M/mm3 (4.20-5.40); Red Cell Distribution Width 13.8 % (11.5-17.5)
[2023-08-02 17:38] LABS: MANUAL DIFFERENTIAL MANUAL DIFFERENTIAL (MANUAL DIFF)
[2023-08-02 17:45] LABS: Alanine Aminotransferase 21 U/L (12-78); Albumin Level 3.7 g/dl (3.5-5.0); Alkaline Phosphatase 88 U/L (38-126); Anion Gap 9.2 mEq/L (5-15); Aspartate Amino Transferase 21 U/L (14-36); Bilirubin,Total 0.9 mg/dl (0.2-1.3); Blood Urea Nitrogen 14 mg/dl (7-17); Calcium 8.6 mg/dl (8.4-10.2); Carbon Dioxide 31 mmol/L (22.0-30.0); Chloride 102 mmol/L (98-107); Creatinine Clearance Estimated 67 mL/min (50-200); Estimated Glomerular Filt Rate 73 ml/min (>60); GFR (African American) 89 ML/MIN (>60); Globulin 3.6 g/dL (1.3-3.2); Glucose 130 mg/dl (74-100); Lactic Acid 0.9 mmol/L (0.7-2.1); Potassium 3.2 mmoL/L (3.5-5.1); Sodium 139 mmol/L (136-145); Total Protein,Serum 7.3 g/dl (6.3-8.2)
--- NOTE | 2023-08-02 17:49 | ECG_ITS ---
APPROVED REPORT Exam: Resting ECG HR:95 bpm ECG Measurements Heart Rate 95 AXES MD 160 P 54 QRSd 85 QRS 101 QT 340 T 16 QTc 393 Conclusion SINUS RHYTHM RIGHT AXIS DEVIATION [QRS AXIS > 100] LOW QRS VOLTAGE IN PRECORDIAL LEADS [QRS DEFLECTION < 1.0 mV IN CHEST LEADS] MINIMAL ST DEPRESSION [0.025+ mV ST DEPRESSION] ABNORMAL ECG UNCONFIRMED REPORT Electronically signed by : Srinath Enriquez MD 08/02/2023 19:55:25
--- NOTE | 2023-08-02 17:53 | PC.NURSE ---
pt to radiology via wheelchair
[2023-08-02 17:58] LABS: Lymphocytes % 6 % (10-50); Monocytes % 9 % (2-9); Neutrophils % 82 % (42-76); Platelet Estimate Normal; RBC Morphology Normal; Total Cells Counted 100
[2023-08-02 18:00] LABS: Troponin I < 0.01 ng/ml (0.00-0.034)
[2023-08-02 18:02] LABS: Procalcitonin 0.135 ng/mL (0.0-2.0)
--- NOTE | 2023-08-02 18:02 | HMH.EDGENADL ---
Discharge Plan Disposition Patient Disposition: Admitted As Inpatient Clinical Impressions Clinical Impression: COPD exacerbation, Acute on chronic respiratory failure with hypoxemia, Sepsis Discharge ED Provider: Jamil Ruggiero General Adult HPI General Chief complaint: Fever Stated complaint: URI symptoms Time Seen by Provider: 08/02/23 16:40 Mode of Arrival: Wheelchair Source of Information: Patient Limitations: No Limitations Description of Symptoms (Recalled from ER Triage Doc. by RN): pt to ed c/o fever, body aches and chills that started this morning History of Present Illness HPI narrative: 58-year-old female with history of COPD, CHF, hypertension, hyperlipidemia not on home oxygen presenting with SOA and fever with cough. Cough started 6 days prior to arrival. Intermittently productive of white sputum. Shortness of breath, fever, headache started a couple days after that. Has been progressively worse. Not on oxygen at home, but feeling short of breath with minimal exertion. No chest pain, has been nauseous without vomiting. Has been taking Tylenol and Motrin which help fever and body aches, but given patient continuing to get worse, came to the emergency department at discretion of family member. Related Data Home Medications Medication Instructions Recorded Confirmed amiloride 5 mg tablet 5 mg PO BID Diuretic 08/02/23 08/02/23 amitriptyline 10 mg tablet 10 mg PO HS . 08/02/23 08/02/23 amlodipine 10 mg tablet 10 mg PO DAILY . 08/02/23 08/02/23 cariprazine 3 mg capsule (Vraylar) 3 mg PO DAILY . 08/02/23 08/02/23 carvedilol 25 mg tablet 25 mg PO BID Heart Rhythm 08/02/23 08/02/23 furosemide 20 mg tablet 20 mg PO BID diuretic 08/02/23 08/02/23 gabapentin 800 mg tablet 800 mg PO TID Neuropathy 08/02/23 08/02/23 ibuprofen 800 mg tablet 800 mg PO TID PRN Pain 08/02/23 08/02/23 lisinopril 40 mg tablet 40 mg PO DAILY High Blood Pressure 08/02/23 08/02/23 magnesium oxide 400 mg (241.3 mg 400 mg PO BID . 08/02/23 08/02/23 magnesium) tablet oxybutynin chloride 10 mg 10 mg PO DAILY . 08/02/23 08/02/23 tablet,extended release 24 hr oxycodone 5 mg tablet 5 mg PO Q4H PRN Pain 08/02/23 08/02/23 trazodone 50 mg tablet 50 mg PO HS sleep 08/02/23 08/02/23 Allergies Allergy/AdvReac Type Severity Reaction Status Date / Time lorazepam [From Ativan] AdvReac Severe FACIAL Verified 02/01/23 13:23 TWITCHING, NEURO CHANGES PFSH PFS Disclaimer: The information contained in this section may have been updated after the patient was seen, as this information can be updated by other users. Medical History Abnormal EKG Anxiety Arthroplasty of knee planned Chest pain Dyspnea History of alcoholism HTN (hypertension) Menopause Ovarian cancer Preoperative clearance Sleep apnea Tobacco dependence syndrome Unilateral primary osteoarthritis, right knee Surgical History History of hip replacement, total Total knee replacement status Family History Sister Breast cancer Rectal cancer Social History (Updated 08/02/23 @ 22:02 by Doris Elizalde RN) Smoking Status: Never smoker alcohol intake: former substance use type: marijuana current occupational status: unemployed Travel in the last 8 weeks: None household members: significant other and none housing: house current occupational exposures/hazards: No caffeine: Yes do you feel safe at home: Yes victim of physical abuse: No victim of emotional abuse: No victim of sexual abuse: No would you like helpful sources: No ROS Obtained: Yes All systems reviewed & no additional complaints except as documented Physical Exam General General appearance: alert, in distress, obese and other ( ) Head Head exam: atraumatic and normocephalic Eye Eye exam: Present normal ap
[2023-08-02 18:38] LABS: NT Pro Brain Natriuretic Pep. 744 pg/mL (0-125)
--- NOTE | 2023-08-02 18:48 | CT_ITS ---
PROCEDURE INFORMATION: Exam: CTA Chest Without And With Contrast Exam date and time: 08/02/2023 7:08 PM Age: 58 years old Clinical indication: Shortness of breath; Additional info: Tachycardia, SOA TECHNIQUE: Imaging protocol: Computed tomographic angiography of the chest without and with contrast. Exam focused on the arteries. 3D rendering (Not supervised by radiologist): MIP and/or 3D reconstructed images were created by the technologist. Radiation optimization: All CT scans at this facility use at least one of these dose optimization techniques: automated exposure control; mA and/or kV adjustment per patient size (includes targeted exams where dose is matched to clinical indication); or iterative reconstruction. Contrast material: ISOVUE 370; Contrast volume: 70 ml; Contrast route: INTRAVENOUS (IV); REPORTING DATA: Count of CT and Cardiac NM exams in prior 12 months: This patient has received [address] and 0 known cardiac nuclear medicine studies in the 12 months prior to the current study. COMPARISON: CR XR CHEST 2V 08/02/2023 5:44 PM FINDINGS: Pulmonary arteries: No pulmonary artery embolism identified with note multiple subsegmental pulmonary arteries are inadequately evaluated secondary to motion. Main pulmonary artery is normal caliber. Aorta: No aortic aneurysm. Significant motion at the aortic root and ascending thoracic aorta. Accounting for motion, no evidence of acute aortic abnormality. Left aortic arch with 4 vessel branching with the left vertebral artery as the 3rd branch, anatomic variant. Thoracic aorta has mild calcified plaque. Thyroid: Subcentimeter thyroid nodules, no specific follow-up imaging indicated. Lungs: Lungs with respiratory motion. Subsegmental and dependent atelectasis in both lower lobes. Mild subpleural opacities in the right upper lobe. Scattered small calcified granulomas. Pleural spaces: No pneumothorax. No pleural effusion. Heart: Heart size is normal. No pericardial effusion. Lymph nodes: No adenopathy. Liver: Hepatic steatosis. Adrenal glands: Non-specific thickening/nodularity of the left adrenal gland. Bones/joints: No acute osseous abnormality or suspicious osseous lesion. Multilevel degenerative changes of the included spine. Soft tissues: Unremarkable. IMPRESSION: 1. No pulmonary artery embolism identified with note multiple subsegmental pulmonary arteries are inadequately evaluated secondary to motion. 2. Mild subpleural opacities in the right upper lobe, favor infectious/inflammatory etiology. 3. Other chronic and incidental findings as detailed above.
--- NOTE | 2023-08-02 19:38 | PC.NURSE ---
Report received from ALINA Briceño. Patient given snack and something to drink. Famsily at bedside given drink. Patient resting without distress. Medicated per JAN. VSS
--- NOTE | 2023-08-02 20:18 | PC.NURSE ---
Called house for admission
[2023-08-02 20:23] LABS: Adenovirus,PCR Not Detected (NotDetected); Bordetella Pertussis Not Detected (NotDetected); Chlamydophila Pneumoniae, PCR Not Detected (NotDetected); Coronavirus 19, PCR Not Detected (NotDetected); Coronavirus 229E Not Detected (NotDetected); Coronavirus NL63 Not Detected (NotDetected); Coronavirus OC43 Not Detected (NotDetected); Coronovirus HKU1,PCR Not Detected (NotDetected); Human Metapneumovirus Not Detected (NotDetected); Influenza A, PCR Not Detected (NotDetected); Influenza AH1, 2009 Not Detected (NotDetected); Influenza AH1, PCR Not Detected (NotDetected); Influenza AH3,PCR Not Detected (NotDetected); Influenza B, PCR Not Detected (NotDetected); Mycoplasma Pneumoniae, PCR Not Detected (NotDetected); Parainfluenza 1, PCR Not Detected (NotDetected); Parainfluenza 2, PCR Not Detected (NotDetected); Parainfluenza 3, PCR Not Detected (NotDetected); Parainfluenza 4, PCR Not Detected (NotDetected); Respiratory Syncytial Virus Not Detected (NotDetected); Rhinovirus/Enterovirus Not Detected (NotDetected)
--- NOTE | 2023-08-02 20:29 | PC.NURSE ---
COVID swab obtained and sent to lab
--- NOTE | 2023-08-02 20:44 | PC.NURSE ---
Report called to ALINA Holman. Patient aware of admission. No needs or concerns. Awaiting 2nd floor transport
[2023-08-02 21:48] LABS: Troponin I < 0.01 ng/ml (0.00-0.034)
--- NOTE | 2023-08-02 22:32 | PC.NURSE ---
pt arrived to floor via wheelchair @2100
[2023-08-02 23:46] LABS: Troponin I < 0.01 ng/ml (0.00-0.034)
[2023-08-03] VITALS: BP 110/65; PULSE 78; PULSE 80; RESP 19; TEMP 36.8; O2SAT 96
[2023-08-03 02:41] LABS: Microscopic, Urine URINE MICROSCOPIC (MICROSCOPIC)
[2023-08-03 03:55] LABS: Appearance,Urine CLEAR (Clear); Bilirubin,Urine Negative (Negative); Blood, Urine TRACE-I (Negative); Glucose,Urine (UA) Negative (Negative); Ketones,Urine Negative (Negative); Leukocyte Esterase,Urine TRACE (Negative); Nitrate,Urine POSITIVE (Negative); PH,Urine 6.5 (5.0-8.5); Protein,Urine Negative (Negative); Urobilinogen,Urine 0.2 EU/dl (0.2)
[2023-08-03 04:00] VITALS: BP 116/63; PULSE 73; PULSE 77; RESP 19; TEMP 36.6; O2SAT 95
[2023-08-03 04:07] LABS: Color,Urine Dark Yellow (Yellow)
[2023-08-03 04:08] LABS: Bacteria,Urine 1+ /lpf; Trichomonas,Urine 1+ /lpf
--- NOTE | 2023-08-03 05:12 | PC.NURSE ---
since arriving to the floor the patient has rested well. No issues have been noted
[2023-08-03 08:00] VITALS: BP 111/66; PULSE 73; PULSE 83; RESP 20; TEMP 36.9; O2SAT 95
--- NOTE | 2023-08-03 08:08 | EXP.HP ---
History of Present Illness *Admission Date: 08/02/23 *Reason for visit:: Cough/congestion/shortness of air *History of present illness: 58-year-old female with significant COPD, obesity and anxiety issues who presented to the ER yesterday evening with fever and dyspnea. Work-up ensued, findings small pulmonary infiltrate, mild hypoxia. CTA was negative but patient admitted for IV antibiotics, oxygen supplementation. [facility] Disclaimer: The information contained in this section may have been updated after the patient was seen, as this information can be updated by other users. Medical History Abnormal EKG Anxiety Arthroplasty of knee planned Chest pain Dyspnea History of alcoholism HTN (hypertension) Menopause Ovarian cancer Preoperative clearance Sleep apnea Tobacco dependence syndrome Unilateral primary osteoarthritis, right knee Surgical History History of hip replacement, total Total knee replacement status Family History Sister Breast cancer Rectal cancer Social History (Updated 08/02/23 @ 22:02 by Doris Elizalde RN) Smoking Status: Never smoker alcohol intake: former substance use type: marijuana current occupational status: unemployed Travel in the last 8 weeks: None household members: significant other and none housing: house current occupational exposures/hazards: No caffeine: Yes do you feel safe at home: Yes victim of physical abuse: No victim of emotional abuse: No victim of sexual abuse: No would you like helpful sources: No Review of Systems Review of Systems Review of systems:: pertinent systems reviewed and negative unless documented below Meds Home Medications and Allergies Home Medications Medication Instructions Recorded Confirmed Type amiloride 5 mg tablet 5 mg PO BID High Blood Pressure 08/02/23 08/02/23 History amitriptyline 10 mg tablet 10 mg PO HS . 08/02/23 History amlodipine 10 mg tablet 10 mg PO DAILY High Blood Pressure 08/02/23 08/02/23 History cariprazine 3 mg capsule (Vraylar) 3 mg PO DAILY Depression 08/02/23 08/02/23 History carvedilol 25 mg tablet 25 mg PO BID High Blood Pressure 08/02/23 08/02/23 History furosemide 20 mg tablet 20 mg PO BID diuretic 08/02/23 08/02/23 History gabapentin 800 mg tablet 800 mg PO TID Neuropathy 08/02/23 08/02/23 History ibuprofen 800 mg tablet 800 mg PO TID PRN Pain 08/02/23 08/02/23 History lisinopril 40 mg tablet 40 mg PO DAILY High Blood Pressure 08/02/23 08/02/23 History magnesium oxide 400 mg (241.3 mg 400 mg PO BID Supplement 08/02/23 08/02/23 History magnesium) tablet oxybutynin chloride 10 mg 10 mg PO DAILY overactive bladder 08/02/23 08/02/23 History tablet,extended release 24 hr trazodone 50 mg tablet 50 mg PO HS sleep 08/02/23 History oxycodone-acetaminophen 5 mg-325 1 tab PO TID PRN Pain 08/03/23 08/03/23 History mg tablet New Prescriptions to Start Prescriptions: Allergies Allergy/AdvReac Type Severity Reaction Status Date / Time lorazepam [From Ativan] AdvReac Severe FACIAL Verified 02/01/23 13:23 TWITCHING, NEURO CHANGES Exam Data for Last 24 hours Vital signs and Labs for Last 24 Hours: Temp Pulse Resp BP Pulse Ox O2 Del Method O2 Flow Rate 98.4 F 83 20 111/66 95 Nasal Cannula 2 08/03/23 08:00 08/03/23 08:00 08/03/23 08:00 08/03/23 08:00 08/03/23 08:00 08/03/23 08:00 08/03/23 08:00 Laboratory Results - last 24 hr 08/02/23 16:40: SARS-CoV-2 (PCR) Not detected, Influenza A Untype (PCR) Not detected, Influenza Type B (PCR) Not detected 08/02/23 17:20: WBC 15.0 H, RBC 4.22, Hgb 12.8, Hct 39.8, MCV 94.2, MCH 30.4, MCHC 32.2, RDW 13.8, Plt Count 206, MPV 8.2, Neut % (Auto) 86.6 H, Lymph % (Auto) 6.8 L, [place] % (Auto) 6.3, Eos % (Auto) 0.2, Baso % (Auto) 0.1, Neut # (Auto
--- NOTE | 2023-08-03 08:36 | HMH.PHAINT1 ---
Pharmacy Intervention Comments: VERIFIED HOME MEDICATION LIST USING LIST FROM OUTPATIENT PHARMACY AND PT INTERVIEW
[2023-08-03 11:29] VITALS: BP 111/69; PULSE 80; RESP 18; TEMP 36.6; O2SAT 94
[2023-08-03 15:46] VITALS: BP 117/72; PULSE 88; RESP 16; TEMP 36.6; O2SAT 93
--- NOTE | 2023-08-03 18:47 | PC.NURSE ---
Blood culture results called for E.Coli in blood culture, MD Ruggiero aware, no action needed due to pt is inpatient and receiving appropriate antibiotic.
--- NOTE | 2023-08-05 15:21 | CARE MANAGER ---
Spoke with patient for post-discharge phone interview, no issues noted.
--- NOTE | 2023-08-09 09:09 | PC.NURSE ---
reviewed blood culture result with dr. huff, pt was admitted. Reviewed pts chart, appears pt was d/c from hospital on 08/03/23 with cefdinir x7 days per oskar lala. states pt will need repeat blood cultures, contact pcp office to see what f/u pt has [id number] with oskar lala to review blood culture results and making sure pt has had f/u states when pt was d/c from hospital blood cultures were not yet resulted. states pt saw oskar del valle in office on 08/06/23 for follow up visit. Reports she will pull culture results and review them will dr. dhillon. Stated to oskar lala that dr. huff recommends pt have f/u blood cultures, states yes she will discuss with dr. dhillon. notified dr. huff have spoke with pt pcp office.
--- NOTE | 2023-08-27 08:46 | EXP.DC.SUM ---
General Admission date:: 08/02/23 Discharge date: 08/03/23 HPI HPI HPI: 58-year-old female with significant COPD, obesity and anxiety issues who presented to the ER yesterday evening with fever and dyspnea. Work-up ensued, findings small pulmonary infiltrate, mild hypoxia. CTA was negative but patient admitted for IV antibiotics, oxygen supplementation. Hospital Course Hospital Course Hospital Course: Patient was admitted. [place] much better the morning after admission with IV antibiotics, fluids and oxygen. She in fact she was able to be weaned off her oxygen even before I made rounds in the morning of the . She had blood cultures which were negative at the time of discharge. Sputum cultures are pending at the time of discharge. Urine cultures are also pending, did show evidence of trichomonas. She apparently had this before. Throughout the day patient improved, was able to get up and move around with her own ADLs and ate well. She will be discharged home with Flagyl and cefdinir as noted to follow-up with me/other office staff for short-term follow-up for COPD and her culture review. Exam Data for Last 24 hours Vital signs and Labs for Last 24 Hours: Temp Pulse Resp BP Pulse Ox O2 Del Method O2 Flow Rate 97.8 F 88 16 117/72 93 L Room Air 2 08/03/23 15:46 08/03/23 15:46 08/03/23 15:46 08/03/23 15:46 08/03/23 15:46 08/03/23 15:46 08/03/23 08:00 Constitutional Constitutional: no acute distress, obese and chronically ill appearing *Routine HEENT Exam Head: Present normocephalic Eye: Present EOMI and PERRL ENT: Present mucous membranes moist *Routine Neck Exam Neck: Present supple; Absent lymphadenopathy *Routine Respiratory Exam Respiratory: Present CTA bilaterally *Routine Cardiovascular Exam Cardiovascular: Present RRR *Routine Abdominal Exam Abdominal: Present soft and normoactive bowel sounds; Absent tenderness *Routine Extremities Exam Extremities: Absent cyanosis, clubbing or edema *Routine Skin Exam Skin: Present warm; Absent rash *Routine Neurological Exam Neurological: Present alert and oriented X3 DS: Diagnosis Discharge Diagnosis (1) COPD exacerbation: Status: Acute Code(s): J44.1 - Chronic obstructive pulmonary disease with (acute) exacerbation (2) Acute on chronic respiratory failure with hypoxemia: Status: Resolved Code(s): J96.21 - Acute and chronic respiratory failure with hypoxia (3) Urinary tract infection: Status: Acute Code(s): N39.0 - Urinary tract infection, site not specified (4) Trichomonas infection: Status: Acute Code(s): A59.9 - Trichomoniasis, unspecified (5) SIRS (systemic inflammatory response syndrome): Status: Resolved Code(s): R65.10 - Systemic inflammatory response syndrome (SIRS) of non-infectious origin without acute organ dysfunction Meds Home Medications and Allergies Home Medications Medication Instructions Recorded Confirmed Type amiloride 5 mg tablet 5 mg PO BID High Blood Pressure 08/02/23 08/02/23 History amitriptyline 10 mg tablet 10 mg PO HS sleep 08/02/23 08/03/23 History amlodipine 10 mg tablet 10 mg PO DAILY High Blood Pressure 08/02/23 08/02/23 History cariprazine 3 mg capsule (Vraylar) 3 mg PO DAILY Depression 08/02/23 08/02/23 History carvedilol 25 mg tablet 25 mg PO BID High Blood Pressure 08/02/23 08/02/23 History furosemide 20 mg tablet 20 mg PO BID diuretic 08/02/23 08/02/23 History gabapentin 800 mg tablet 800 mg PO TID Neuropathy 08/02/23 08/02/23 History ibuprofen 800 mg tablet 800 mg PO TID PRN Pain 08/02/23 08/02/23 History lisinopril 40 mg tablet 40 mg PO DAILY High Blood Pressure 08/02/23 08/02/23 History magnesium oxide 400 mg (241.3 mg 400 mg PO BID Supplement 08/02/23 08/02/23 History magnesium) tablet oxybutynin chloride 10 mg 10 mg PO DAILY overactive bladder 08/02/23 08/02/23 History tablet,extended release 24 hr trazodone 50 mg tablet 50
== END 2023-08-03 16:38 | disposition home or self-care (01) ==
LOC: ER 19:37 → 2ND 20:22
PROVIDERS: Admitting Provider Internal Medicine Adolescent Medicine; Emergency Provider Emergency Medicine; PCP Internal Medicine Adolescent Medicine; Visit Provider Internal Medicine Adolescent Medicine
DX: J44.1 Chronic obstructive pulmonary disease with (acute) exacerbation (principal); Z79.899 Other long term (current) drug therapy; I10 Essential (primary) hypertension; Z85.43 Personal history of malignant neoplasm of ovary; J96.21 Acute and chronic respiratory failure with hypoxia; N39.0 Urinary tract infection, site not specified; A59.9 Trichomoniasis, unspecified
CPT/HCPCS: 36415; 71046; 71275; 80053; 81001; 82803; 83605; 83880; 84145; 84484; 85007; 85025; 87040; 87077; 87086; 87186; 87581; 87632; 87636; 87798; 93005; 99285; G0378; J0456; J0696; Q9967

== ENCOUNTER → 2023-08-06 09:59 | Outpatient (CLI) | payer OTHER, SELFPAY ==
[2023-08-06 10:32] LABS: Chloride 105 mmol/L (98-107); Potassium 3.6 mmoL/L (3.5-5.1); Sodium 143 mmol/L (136-145)
[2023-08-06 10:33] LABS: Basophils % 0.3 % (0.1-2.0); Eosinophils # 0.1 K/mm3 (0.0-0.4); Eosinophils % 1.3 % (0.1-12.0); Hematocrit 44.8 % (37.0-47.0); Hemoglobin 14.1 g/dL (12.2-16.2); Lymphocytes # 1.6 K/mm3 (0.7-4.5); Lymphocytes % 16.2 % (10-50); Mean Corpuscular HGB Conc 31.5 g/dL (31.8-35.4); Mean Corpuscular Hemoglobin 29.9 pg (27.0-31.2); Mean Corpuscular Volume 94.8 fl (81-99); Monocytes # 0.6 K/mm3 (0.1-1.0); Monocytes % 6.4 % (1.7-9.3); Neutrophils # 7.3 K/mm3 (1.8-7.8); Neutrophils % 75.9 % (37.0-80.0); Platelet Count 290 K/mm3 (142-424); Red Blood Count 4.72 M/mm3 (4.20-5.40); White Blood Count 9.6 K/mm3 (4.8-10.8)
[2023-08-06 10:34] LABS: Alanine Aminotransferase 31 U/L (12-78); Aspartate Amino Transferase 29 U/L (14-36); Blood Urea Nitrogen 18 mg/dl (7-17); Estimated Glomerular Filt Rate 73 ml/min (>60); GFR (African American) 89 ML/MIN (>60)
[2023-08-06 10:35] LABS: Albumin Level 3.7 g/dl (3.5-5.0); Albumin/Globulin Ratio 1.3 (1.1-1.8); Alkaline Phosphatase 88 U/L (38-126); Anion Gap 10.6 mEq/L (5-15); Bilirubin,Total 0.4 mg/dl (0.2-1.3); Calcium 8.5 mg/dl (8.4-10.2); Carbon Dioxide 31 mmol/L (22.0-30.0); Globulin 2.9 g/dL (1.3-3.2); Glucose 153 mg/dl (74-100); Total Protein,Serum 6.6 g/dl (6.3-8.2)
== END ==
PROVIDERS: PCP Nurse Practitioner Family; Visit Provider Nurse Practitioner Family
DX: J18.9 Pneumonia, unspecified organism (principal); N30.00 Acute cystitis without hematuria
CPT/HCPCS: 36415; 80053; 85025

== ENCOUNTER 2024-06-08 14:19 | Outpatient (CLI) | payer OTHER, SELFPAY ==
--- NOTE | 2024-06-08 14:24 | MM_ITS ---
PROCEDURE INFORMATION: Exam: MG Bilateral Screening 3D Mammography Exam date and time: 06/08/2024 2:12 PM Age: 58 years old Clinical indication: Screening examination TECHNIQUE: Imaging protocol: Bilateral Screening tomosynthesis and 2D mammography including computer-aided detection (CAD) when performed. COMPARISON: 1. MG MM DIG SCREENING MAMM BI W/CAD 01/19/2023 4:43 PM 2. MG SCBI MM Dig screening mamm BI w/CAD 06/05/2018 5:12 PM FINDINGS: MAMMOGRAPHY: Breast composition: The breasts are heterogeneously dense, which may obscure small masses. Mass: None. Architectural distortion: None. Calcifications: No suspicious calcifications. Asymmetric density: None. Skin thickening: None. Axillary adenopathy: None. IMPRESSION: No mammographic evidence of malignancy. Annual screening is recommended unless otherwise clinically indicated. ASSESSMENT: BI-RADS Category 1: Negative
--- NOTE | 2024-06-08 14:24 | US_ITS ---
FINAL REPORT TECHNIQUE: Real-time grayscale and color ultrasound of the thyroid was performed. CLINICAL HISTORY: NODULE COMPARISON: 02/08/2023 FINDINGS: The thyroid gland measures 62 x 25 x 33 mm on the right and 65 x 27 x 31 mm on the left. The isthmus measures 3 mm. . Nodules: There are multiple solid predominantly TR 4 nodules in both lobes. The largest 2 on the right measure up to 17 and 19 mm, previously 22 and 21 mm respectively. Size difference for initial nodules probably due to measuring difference. The largest nodules on the left both measure up to 22 mm and previously measured 13 and 25 mm. The enlarged nodule is located within the upper left lobe and referred to as nodule A on annotated images. IMPRESSION: Multiple nodular goiter with 1 nodule showing interval enlargement in the upper left lobe referred to as nodule A. Ultrasound-guided FNA recommended for enlarged lesion. Reviewed, Interpreted and Dictated by Sheryl Mcduffie MD Transcribed by Yue Lao Authenticated and [facility]
== END 2024-06-08 23:59 | disposition home or self-care (01) ==
LOC: RAD 14:20
PROVIDERS: PCP Nurse Practitioner Family; Visit Provider Nurse Practitioner Family
DX: E04.1 Nontoxic single thyroid nodule (principal); Z12.31 Encounter for screening mammogram for malignant neoplasm of breast
CPT/HCPCS: 76536; 77063; 77067

== ENCOUNTER 2024-06-29 08:57 | Outpatient (CLI) | payer OTHER, SELFPAY ==
--- NOTE | 2024-06-29 08:58 | US_ITS ---
FINAL REPORT CLINICAL HISTORY: LT THYROID NODULE BX FNA -- SMITA TRUJILLO FINDINGS: ULTRASOUND GUIDED THYROID BIOPSY HISTORY: Left thyroid nodule/mass. TECHNIQUE: Informed consent was obtained from the patient. Limited sonographic evaluation of thyroid gland was performed to localize lesion of interest. The neck was prepped in a routine sterile fashion and locally anesthetized with 1% lidocaine. FNA was performed with 25-gauge needle under direct sonographic visualization. Four FNA passes were made. Cytology is pending. Procedure was well tolerated. CONCLUSION: Technically successful thyroid fine needle aspiration of a left thyroid nodule. Reviewed, Interpreted and Dictated by Hussein Huerta III, MD Transcribed by Julia More PA-C Authenticated and . [facility]
[2024-06-29 11:54] LABS: Thyroid Stimulating Hormone 0.37 uIU/mL (0.465-4.68)
== END 2024-06-29 23:59 | disposition home or self-care (01) ==
LOC: RAD 08:58
PROVIDERS: PCP Nurse Practitioner Family; Visit Provider Nurse Practitioner
DX: E04.2 Nontoxic multinodular goiter (principal)
CPT/HCPCS: 10005; 36415; 84439; 84443